=== PATIENT | female | born 1990 | race Caucasian/White ===

== ENCOUNTER 2017-05-12 04:30 | Inpatient (IN) | payer OTHER ==
[~2017-05-12] VITALS: Ht 157.5 cm; Wt 49.2 kg
[2017-05-12] MEDS ORDERED: SOD CHLORIDE 0.9% 1,000 ML IV STA (05:31)
[2017-05-12] MEDS ORDERED: morphine 4 MG/ML VIAL IV STA (05:31)
[2017-05-12] MEDS ORDERED: ONDANSETRON 4 MG INJ IV STA (05:31)
[2017-05-12] MEDS ORDERED: ALPR2TAB PO (05:49)
[2017-05-12] MEDS ORDERED: BIOT1CAP3 PO (05:49)
[2017-05-12] MEDS ORDERED: MELA1TAB15 PO (05:49)
[2017-05-12] MEDS ORDERED: QUET300T13 PO (05:49)
[2017-05-12] MEDS ORDERED: AMPH20TA2 PO (05:49)
[2017-05-12] MEDS ORDERED: LITH300T5 PO (05:49)
[2017-05-12 06:09] LABS: BASOPHIL # 0.1 10^3/ul (0.0-0.1); BASOPHILS % 0.5 % (0.0-2.0); EOSINOPHILS # 0.3 10^3/ul (0.0-0.5); EOSINOPHILS % 1.6 % (0.0-7.0); HEMATOCRIT 40.3 % (37.0-47.0); HEMOGLOBIN 13.6 g/dl (12.0-16.0); LYMPHOCYTES # 2.7 10^3/ul (0.8-2.9); LYMPHOCYTES % 16.2 % (15.0-51.0); MEAN CORPUSCULAR HEMOGLOBIN 33.1 pg (29.0-33.0); MEAN CORPUSCULAR HGB CONC 33.7 g/dl (32.0-37.0); MEAN CORPUSCULAR VOLUME 98.1 fl (82.0-101.0); MONOCYTE # 0.9 10^3/ul (0.3-0.9); MONOCYTES % 5.2 % (0.0-11.0); NEUTROPHIL # 12.7 10^3/ul (1.6-7.5); NEUTROPHILS % 76.1 % (39.0-77.0); PLATELET COUNT 364 10^3/UL (140-415); RED BLOOD COUNT 4.11 10^6/ul (4.20-5.40); WHITE BLOOD COUNT 16.7 10^3/ul (4.8-10.8)
--- NOTE | 2017-05-12 06:29 | RADRPT ---
PROCEDURE: CT Abdomen and pelvis without contrast. CLINICAL INDICATION: Abdominal pain TECHNIQUE: CT scan of the abdomen and pelvis without contrast was performed on a multidetector hig h-resolution CT scan. . Coronal and sagittal reformatted images were obtained from the axial [facility] e images. Standard CT scan of the abdomen pelvis without contrast protocols were performed. The total exam CTDI equals 4.41 mGy and the total exam DLP equals 224.31 mGy-cm. One or more of the following dose reduction techniques were used: - Automated exposure control. - Adjustment of the mA and/or kV according to patient size. Use of iterative reconstruction technique. COMPARISON: None. FINDINGS: The kidneys are normal in size without hydronephrosis or intra renal masses bilaterally. There is a punctate 1-2 mm non-obstructing inferior left renal calcified calculus. No other calcified renal c alculi. The urinary bladder is contracted but otherwise unremarkable. No evidence of ureteral calc jerrell. The uterus is anteverted anteflexed with an intrauterine device present. The uterus is otherwise un remarkable. No definite adnexal masses. There is trace fluid in the cul-de-sac. No other abdomina l free fluid. Negative for intra-abdominal free air or abscesses. There are prominent left periaor tic lymph nodes but no definite abdominal or pelvic lymphadenopathy. The liver spleen pancreas and adrenal glands are unremarkable. The appendix is unremarkable. The stomach, small bowel and large bowel are unremarkable. The aorta and lung bases are unremarkable. The lower thoracic abdominal pelvic viramontes are unremarkab le. There are degenerative changes lower thoracic and lumbar spine. There is a minimal grade 1 retrolit hesis of L5 on S1 vertebral bodies. No other subluxations. No acute osseous findings are osteoblas tic/osteolytic lesions. IMPRESSION: 1. Punctate 1-2 mm non-obstructing left renal calcified calculus. No other calcified urinary calcu li or obstructive uropathy. 2. Trace fluid in the cul-de-sac without intra-abdominal free air or abscess. 3. Unremarkable appendix. No evidence of gastrointestinal disease. RPTAT:AAJJ Physician Mariola Date Time Electronically viewed and signed by Physician Mariola on 05/12/2017 06:29 HATTIE/
[2017-05-12 06:38] LABS: ALBUMIN 4.1 g/dl (3.3-4.9); ALBUMIN/GLOBULIN RATIO 1.28; BILIRUBIN,INDIRECT 0.3 mg/dl (0-1.1); BILIRUBIN,TOTAL 0.3 mg/dl (0.2-1.3); CALCIUM 9.2 mg/dl (8.4-10.2); CREATININE 0.81 mg/dl (0.44-1.00); POTASSIUM 3.7 mmol/L (3.5-5.1); TOTAL PROTEIN 7.3 g/dl (6.1-8.1)
[2017-05-12 06:45] LABS: ADD UMIC YES; UR ASCORBIC ACID NEGATIVE (NEGATIVE); UR BACTERIA FEW /HPF (NONE SEEN); UR BILIRUBIN (Dip) NEGATIVE (NEGATIVE); UR BLOOD (Dip) NEGATIVE (NEGATIVE); UR BUDDING YEAST FEW /HPF (NONE SEEN); UR CLARITY SLIGHTLY CLOUDY (CLEAR); UR COLOR YELLOW (YELLOW); UR GLUCOSE (Dip) NEGATIVE (NEGATIVE); UR KETONES (Dip) NEGATIVE (NEGATIVE); UR LEUKOCYTE ESTERASE (Dip) 2+ Leu/ul (NEGATIVE); UR MUCUS FEW /HPF (NONE SEEN); UR NITRITE (Dip) NEGATIVE (NEGATIVE); UR RBC 9 /HPF (0-5); UR SPECIFIC GRAVITY (Dip) 1.021 (1.003-1.030); UR SQUAMOUS EPITHELIAL CELL FEW /HPF (FEW); UR TOTAL PROTEIN (Dip) NEGATIVE (NEGATIVE); UR UROBILINOGEN (Dip) 1+ mg/dL (NEGATIVE)
[2017-05-12] MEDS ORDERED: metroNIDAZOLE 500 MG/NS (PMX) 100 ML IVPB ONE (07:00)
[2017-05-12] MEDS ORDERED: CEFTRIAXONE 1 GM/50 ML (PMX) 50 ML IVPB ONE (07:00)
[2017-05-12] MEDS ORDERED: morphine 2 MG INJ IV ONE (07:30)
--- NOTE | 2017-05-12 07:43 | RADRPT ---
PROCEDURE: US pelvis complete and transvaginal CLINICAL INDICATION: 3 weeks of pelvic pain with clinical symptoms more suspicious for pelvic infl ammatory disease than ovarian torsion. TECHNIQUE: Deshpande scale and color Doppler imaging of the pelvis was performed. Endovaginal scanning was performed for more detailed evaluation of the endometrium. The images were reviewed on a PACS workstation. COMPARISON: CT from 05/12/2017 FINDINGS: The uterus measures 7 x 3.1 x 4.1 centimeters. The right ovary measures 5.6 x 4.2 x 5.1 centimeters and the left ovary measures 4.3 x 3.1 x 4.1 centimeters. The endometrial stripe measures 4 millime ters in thickness and an IUD is seen in place.. Trace fluid is seen within the endometrial canal. N o fibroids are seen. There are multiple ovarian follicles bilaterally which could be due to polycyst ic ovaries. Arterial and venous pulsed wave Doppler and color Doppler flow both ovaries was documen camelia. There is a dominant hypoechoic lesion with slightly heterogeneous content in the right ovary m easuring approximately 3.3 x 2.1 cm. Within the left ovary, the largest lesion is in a heterogeneou s complex lesion measuring 2.7 x 2.9 cm with mixed hypoechoic and hyperechoic areas. Free fluid is n ot seen although there was some free fluid present in the cul-de-sac on earlier CT. IMPRESSION: IUD. Enlarged ovaries with multiple follicles and dominant heterogeneous lesion in each ovary which could be due to complex cyst or possibly endometriomas. There is not a clearly dilated fallopian t ube on either side to specifically suggest tubo-ovarian abscess although that cannot be completely e xcluded. Ovarian torsion cannot be excluded although flow was readily obtained in the region of eac h ovary. Results were called to Misael Meraz at 05/12/2017 7:41:18 AM RPTAT: HLBE Isabel Mendez Physician Date Time Electronically viewed and signed by Isabel Mendez Physician on 05/12/2017 07:42 LE/
[2017-05-12 08:00] LABS: INR 0.98
[2017-05-12 08:01] LABS: PARTIAL THROMBOPLASTIN TIME 34.9 Sec (25.0-35.0)
--- NOTE | 2017-05-12 08:04 | ERA ---
ER Documentation Chief Complaint Date/Time DATE: 05/12/17 TIME:522 Chief Complaint abdomianl pain x 2 1/2 weeks HPI 26-year-old female presents to the emergency department complaining of lower abdominal pain. Patient states that she has had a diffuse, nonspecific, visceral lower abdominal pain for approximately 2-3 weeks. It became worse over the last 24 hours and now is mostly right lower quadrant pain. She denies fevers, chills, anorexia or vomiting. She currently reports the pain is moderate to severe. She states she has had a concurrent vaginal discharge. She denies vaginal bleeding. She denies dysuria, flank pain. She denies hematuria. ROS All systems reviewed and are negative except as per history of present illness. Medications Home Meds Reported Medications Melatonin (Melatonin) Unknown Strength Tablet, PO HS, TAB 05/12/17 Biotin (BIOTIN) 1 Mg Capsule, PO, CAP 05/12/17 Amphet Qtm-Mmlkgd-E-Amphet (Adderall) 20 Mg Tablet, 20 MG PO DAILY, TAB 05/12/17 Alprazolam* (Xanax*) 2 Mg Tablet, 2 MG PO DAILY Y for ANXIETY, TAB 05/12/17 Quetiapine Fumarate* (Seroquel*) 300 Mg Tablet, 300 MG PO HS, TAB 05/12/17 [place] Carbonate* ([place] Carbonate*) 300 Mg Tablet, 300 MG PO BID, TAB 05/12/17 Allergies Allergies: Coded Allergies: No Known Drug Allergies (Verified Allergy, Unknown, 05/12/17) PMhx/Soc Medical and Surgical Hx: pt denies Surgical Hx Hx Psychiatric Problems: Yes (anxiety, bipolar disorder) Hx Alcohol Use: Yes (occasional) Hx Substance Use: Yes (marijuana) Hx Tobacco Use: Yes Smoking Status: Current some day smoker FmHx Noncontributory for chief complaint Physical Exam Vitals Vital Signs Date Time Temp Pulse Resp B/P Pulse Ox O2 Delivery O2 Flow Rate FiO2 05/12/17 07:44 73 18 110/68 99 Room Air 05/12/17 04:36 97.0 105 20 110/57 99 Physical Exam GENERAL: The patient is well developed and appropriate for usual state of health in no apparent distress HEENT: Pupils equal, round, and reactive to light. EOMI. There is no scleral icterus. NECK: C-spine is soft and supple, there is no meningismus. There is no cervical lymphadenopathy. LUNGS: Clear to auscultation bilaterally. There are no rales, wheezes or rhonchi. HEART: Regular rate and rhythm, no murmurs, clicks, rubs or gallops. ABDOMEN: Soft, nondistended. Normal active bowel sounds. Minimal tenderness in the suprapubic and right lower quadrant area. No rebound, guarding, peritoneal signs. No CVA tenderness. EXTREMITIES: There is no peripheral cyanosis or edema. No focal swelling or erythema. NEURO: The patient moves all four extremities with 5/5 strength. Cranial nerves II - XII are intact. Normal gait. Alert and oriented SKIN: There is no apparent rash or petechiae. HEME/LYMPHATIC: There is no evidence of excessive bruising or lymphedema. PSYCHIATRIC: The patient does not appear anxious or depressed. Result Diagram: 05/12/17 0557 05/12/17 0557 Results 24 hrs Laboratory Tests Test 05/12/17 05:31 05/12/17 05:57 Urine Color YELLOW Urine Clarity SLIGHTLY CLOUDY Urine pH 6.0 Urine Specific [place] 1.021 Urine Ketones NEGATIVEmg/dL Urine Nitrite NEGATIVEmg/dL Urine Bilirubin NEGATIVEmg/dL Urine Urobilinogen 1+mg/dL Urine Leukocyte Esterase 2+[place]/ul Urine Microscopic RBC 9/HPF Urine Microscopic WBC 75/HPF Urine Squamous Epithelial Cells FEW/HPF Urine Bacteria FEW/HPF Urine Mucus FEW/HPF Urine Yeast (Budding) FEW/HPF Urine Hemoglobin NEGATIVEmg/dL Urine Glucose NEGATIVEmg/dL Urine Total Protein NEGATIVEmg/dl Urine Test NEGATIVE White Blood Count 16.710^3/ul Red Blood Count 4.1110^6/ul Hemoglobin 13.6g/dl Hematocrit 40.3% Mean Corpuscular Volume 98.1fl Mean Corpuscular Hemoglobin 33.1pg Mean Corpuscular Hemoglobin Concent 33.7g/dl Red Cell Distribution Width 12.0% Platelet Count 64115^3/UL Mean Platelet Volume 10.0fl Neutrophils % 76.1% Lymphocytes % 16.2% Monocytes % 5.2% Eosinophils % 1.6% Basophils % 0.5% Nucleated Red Blood Cells % 0.0/100WBC Neutrophils # 12.710^3/ul Lymphocytes # 2.710^3/ul Monocytes # 0.910^3/ul Eosinophils # 0.310^3/ul Basophils # 0.110^3/ul Nucleated Red Blood Cells # 0.010^3/ul Sodium Level 144mmol/L Potassium Level 3.7mmol/L Chloride Level 100mmol/L Carbon Dioxide Level 29mmol/L Anion Gap 19 Blood Urea Nitrogen 9mg/dl Creatinine 0.81mg/dl Glucose Level 81mg/dl Calcium Level 9.2mg/dl Total Bilirubin 0.3mg/dl Direct Bilirubin 0.00mg/dl Indirect Bilirubin 0.3mg/dl Aspartate Amino Transf (AST/SGOT) 21IU/L Alanine Aminotransferase (ALT/SGPT) 38IU/L Alkaline Phosphatase 92IU/L Total Protein 7.3g/dl Albumin 4.1g/dl Globulin 3.20g/dl Albumin/Globulin Ratio 1.28 Lipase 381U/L Current Medications Medications (Trade) Dose Ordered Sig/Sherry Route PRN Reason Start Time Stop Time Status Last Admin Dose Admin Sodium Chloride (NS) 1,000 ml @ 1,000 mls/hr Q1H STAT IV 05/12/17 05:31 05/12/17 06:30 DC 05/12/17 06:04 Ondansetron HCl (Zofran Inj) 4 mg ONCE STAT IV 05/12/17 05:31 05/12/17 05:33 DC 05/12/17 06:03 Morphine Sulfate 4 mg 4 mg ONCE STAT IV 05/12/17 05:31 05/12/17 05:33 DC 05/12/17 06:04 Ceftriaxone Sodium 50 ml @ 100 mls/hr ONCE ONCE IVPB 05/12/17 07:00 05/12/17 07:29 DC 05/12/17 07:01 Metronidazole (Flagyl 500 Mg (Pmx)) 100 ml @ 100 mls/hr ONCE ONCE IVPB 05/12/17 07:00 05/12/17 07:59 DC 05/12/17 07:51 Morphine Sulfate (morphine) 2 mg ONCE ONCE IV 05/12/17 07:30 05/12/17 07:31 DC 05/12/17 07:37 Procedures/MDM Patient was taken to a room, seen and evaluated. Comfort measures were initiated. Diagnostic tests were ordered and reviewed. RADIOLOGY: reviewed with the radiologist CONSULTATION: hospitalist was notified for admission. FRUIT CUTTER consultation was obtained REEVALUATION: Patient required ongoing pain medication but did not develop peritoneal signs MEDICAL DECISION MAKIN-year-old female presents with abdominal pain of uncertain etiology. Differential diagnosis considered includes appendicitis, diverticulitis, cholecystitis and other intra-abdominal medical, gynecologic and surgical concerns. I have reviewed the patient's lab studies and imaging as well as multiple examinations of the abdomen. At this time, given patient's abnormal ultrasound, white blood cell count, pelvic discomfort and discharge, my main concern is that this is PID related. CAT scan does not demonstrate appendicitis, and her clinical examination is not consistent with torsion. She was noted to have blood flow on her ultrasound to both ovaries. The CAT scan does demonstrate free fluid, which I believe is likely related to what I suspect is a TOA/PID presentation. Concurrently, patient has an elevated lipase and tells me she has been drinking a significant amount of alcohol. However, her right upper quadrant is not tender. I have ordered an ultrasound of the gallbladder to further evaluate the gallbladder, although I suspect that her pancreatitis is likely related to alcohol. At this time, given the patient's ongoing discomfort, patient will be admitted to the hospital for further observation, pain control, gynecologic consultation and further treatment. Have started her on broad-spectrum antibiotics for PID. Departure Diagnosis: Primary Impression: Pelvic inflammatory disease Additional Impression: Pancreatitis Condition: WAYNE French May 12, 2017 08:04
--- NOTE | 2017-05-12 08:29 | RADRPT ---
PROCEDURE: US Abdomen (right upper quadrant). CLINICAL INDICATION: Right upper quadrant abdomen pain. TECHNIQUE: Multiple real-time longitudinal and transverse images of the right upper quadrant of th e abdomen were acquired utilizing a curved array transducer. Images were reviewed on a high-resoluti on PACS workstation. COMPARISON: CT scan of the abdomen and pelvis done earlier the same day. FINDINGS: The liver is normal in size and normal in echogenicity. There is no focal hepatic lesion. Color Doppler sonography demonstrate normal antegrade flow in the portal vein. The gallbladder is normal with no stones or wall thickening. There is no pericholecystic fluid jakob ection. The bile ducts are normal with the common bile duct measuring 5.4 mm in diameter. The visualized portions of the pancreas are unremarkable with obscuration of the tail of the pancrea s. No free fluid is present. The right kidney measures 10.8 cm. There is normal echogenicity of the right kidney. There is no perinephric fluid collection. No hydronephrosis, mass, or calculus is seen. IMPRESSION: 1. Unremarkable right upper quadrant abdomen ultrasound. RPTAT: QQ .Abdifatah Finch MD, Date Time Electronically viewed and signed by .Abdifatah Finch MD, on 05/12/2017 08:28 .R/
[2017-05-12 09:14] VITALS: PULSE 73
[2017-05-12] MEDS ORDERED: ONDANSETRON 4 MG INJ IV PRN (09:30)
[2017-05-12] MEDS ORDERED: NACL 0.9% 3 ML SYG IV SCH (09:30)
[2017-05-12] MEDS ORDERED: ACETAMINOPHEN 650 MG SUPP PR PRN (09:30)
[2017-05-12 09:36] VITALS: BP 105/60; RESP 16
[2017-05-12] MEDS: morphine 2 MG INJ IV PRN ×3 (09:43→19:39)
[2017-05-12] MEDS: SOD CHLORIDE 0.9% 1,000 ML IV SCH ×2 (10:24→17:02)
[2017-05-12] MEDS: LORAZEPAM 2 MG INJ IV PRN ×4 (10:50→21:12)
[2017-05-12 12:04] LABS: HAAIG REFLEX REFLEX FILED
[2017-05-12 12:22] LABS: HEPATITIS B CORE ANTIBODY NEGATIVE (NEGATIVE)
--- NOTE | 2017-05-12 13:13 | HP ---
Date/Time of Note Date/Time of Note DATE: 05/12/17 TIME: 12:59 Assessment/Plan VTE Prophylaxis VTE Prophylaxis Intervention: ambulation, SCD's Lines/Catheters IV Catheter Type (from Nrs): Peripheral IV Urinary Cath still in place: No Assessment/Plan Chief Complaint/Hosp Course 1. Abdominal pain, multifactorial secondary to possible pelvic inflammatory disease /Ovarian cyst/Infected IUD versus other non CHILD CARE ATTENDANT causes most likely urinary tract infection and mild pancreatitis 05/12/17.Pelvic ultrasound: Enlarged ovaries with multiple follicles and dominant heterogeneous lesion in each ovary which could be due to complex cyst or possibly endometriomas. 05/12/17. CT abdomen and pelvis: Trace fluid in the cul-de-sac without intra-abdominal free air or abscess. 05/12/17. Urinalysis positive for bacteria, WBC, yeast and leukocyte esterase. 05/12/17. Lipase 381 -Admit as inpatient. -Strict n.p.o. until pain gets better, IV fluid hydration, broad-spectrum antibiotics, adequate analgesia, H2 B, antiemetics PRN. -CHILD CARE ATTENDANT consult with DR.Forohoor murphy. -Obtain cultures of vaginal discharge. 2. Urinary tract infection. Urinalysis strongly suggest UTI. -We will keep patient on broad-spectrum antibiotics and obtain cultures. 3. Possible pancreatitis. Lipase 381. -N.p.o., IV fluids, pain medications. -Trend lipase daily. 4. SIRS with leukocytosis likely secondary to UTI and possible PID -Again, patient will be continued on broad-spectrum antibiotics and we will obtain pancultures. 5. Anxiety/bipolar disorder. -Resume home medication once able to tolerate p.o. -Ativan PRN 6. Alcohol abuse. Currently no signs of DTs. -Daily banana bag and prn Ativan -Consider Librium if indicated -Cessation advised and social secretary consult for providing him with resources 7. Marijuana abuse -Patient was counseled and we will also consult social secretary. DVT prophylaxis: Ambulation/SCDs PUD prophylaxis: Pepcid Plan: Patient will be admitted to medical surgical floor. She will be monitored for possible DTs. Patient will be kept n.p.o. until abdominal pain gets improved. She will be given adequate analgesia, IV fluid hydration, antiemetics and broad-spectrum antibiotics. Along with blood and urine cultures. Spoke with CLIENT ENGAGEMENT SPECIALIST outreach liaison and patient will be followed up with CHILD CARE ATTENDANT for further recommendation. Meanwhile, we will also obtain a complete panel including regular blood work, lithium level, HIV panel, hep panel and GC/ chlamydia cultures. Rest of the management depend on clinical course, further studies and input from big machine consultant. Approximately 60 minutes was spent on this history and physical. Case discussed with . Problems: HPI/ROS Admit Date/Time Admit Date/Time May 12, 2017 at 08:36 Hx of Present Illness This is a 26-year-old female with a past medical history of bipolar disorders, PTSD, on lithium, suicidal attempts, current alcohol and marijuana abuse, cholecystectomy, tubal ligation, IUD placed,polygamy, previous inpatient hospitalization at psychiatric facility with 5150, who presented to the emergency room with complaints of 2-3 weeks duration of worsening abdominal pain mostly located at the periumbilical area. He also reported foul-smelling, clear vaginal discharges. Patient is also sexually active with multiple sexual partners. Patient denied nausea, vomiting, fever or chills. Patient denied any hematochezia, hematemesis or melena. She denied any dysuria, hematuria, urinary frequency, flank pain, chest pain, shortness of breath, loss of consciousness, dizziness, headache, numbness or other constitutional symptoms. In the emergency room,Temperature 97, pulse rate 105, respiratory rate 20, blood pressure 110/57 and oxygen saturation 99% upon arrival. Initial labs showed elevated WBC 16,700 and a mildly elevated lipase of 381. Urine analysis was positive for leukocyte esterase, WBC, bacteria and yeast. Patient was given 1 L normal saline, morphine sulfate 4 mg, Zofran 4 mg, ceftriaxone and Flagyl in the emergency room and a clinical decision was made to admit for further evaluation. A CT abdomen was negative for any acute intra-abdominal inflammation. There was a punctuate 1-2 mm nonobstructing left renal calculi in the imaging. Ultrasound gallbladder was negative. Pelvic ultrasound with dominant heterogeneous lesion in each ovary which could be due to complex cyst or possibly endometriomas. Patient was admitted for further evaluation. ROS A 12 point review of system was assessed and is negative other than what is mentioned in HPI. PMH/Family/Social Past Medical History See HPI Past Surgical History See HPI Social History Current every day alcohol, marijuana abuse. Former nicotine abuse. Smoking Status: Current some day smoker Exam/Review of Systems Vital Signs Vitals Vital Signs Date Time Temp Pulse Resp B/P Pulse Ox O2 Delivery O2 Flow Rate FiO2 05/12/17 09:36 98.8 74 16 105/60 98 05/12/17 09:14 Room Air Exam Exam General: Anxious looking young female , not in any acute distress . HEENT: Normocephalic, Atraumatic, No laceration or hematoma; Eyes: PEERL, Conjunctiva clear, Anicteric sclera Neck: Supple without any lymphadenopathy, nontender, no JVD, no carotid bruits, trachea midline, no thyromegaly Cardiac: S1, S2 auscultated, regular rhythm and rate, no mumurs or gallop Pulmonary: Normal respiratory effort. Chest clear to auscultation bilaterally, no adventitious breath sounds GI: Tenderness to periumbilical area. There is also a small burn area on the right lower quadrant. Otherwise abdomen normal to inspection. Soft, non- distended, no masses, no rebound tenderness or guarding. Bowel sounds active on all four quadrants Genitourinary: With foul-smelling clear vaginal discharge Extremities: No cyanosis, clubbing, or edema. Pulses [2+] bilaterally. Full ROM on all four extremities. No focal weakness appreciated. Neurologic: Alert to person, place, time, and situation. Affect appropriate, intact sensation. Skin: With multiple tattoos all over the body. Otherwise skin clean,dry, and intact. No ecchymosis, no rashes, or lesions Labs Result Diagram: 05/12/17 0557 05/12/17 0557 Medications Medications Current Medications Sodium Chloride (NS) 1,000 ml @ 125 mls/hr Q8H IV Last administered on 10:24; Admin Dose 125 MLS/HR; Start 05/12/17 at 09:02 Ondansetron HCl (Zofran Inj) 4 mg Q6H PRN IV NAUSEA AND/OR VOMITING; Start at 09:30 Acetaminophen (Tylenol Supp) 650 mg Q6H PRN [place] PAIN LEVEL 1-3 OR FEVER; Start 05/12/17 at 09:30 Morphine Sulfate (morphine) 2 mg Q4H PRN IV SEVERE PAIN LEVEL 7-10 Last administered on 05/12/17 09:43; Admin Dose 2 MG; Start 05/12/17 at 09:30 Famotidine 20 mg 20 mg Q12 IV ; Start 05/12/17 at 21:00 Ciprofloxacin/ Dextrose 200 ml @ 200 mls/hr Q12 IVPB ; Start 05/12/17 at 21:00 Metronidazole (Flagyl 500 Mg (Pmx)) 100 ml @ 100 mls/hr Q8 IVPB ; Start at 14:00 Lorazepam 1 mg 1 mg Q2H PRN IV anxiety Last administered on 05/12/17t 10:50; Admin Dose 1 MG; Start 05/12/17 at 09:30 Multivitamins/ Thiamine HCl/ Folic Acid/Sodium Chloride (Mvi Adult/ Vitamin B1/ Folic Acid/NS) 1,011.2 ml @ 125 mls/ hr DAILY@09 IVPB ; Start 05/12/17 at 11:00 JULIA GUZMAN NP May 12, 2017 13:10
[2017-05-12] MEDS: metroNIDAZOLE 500 MG/NS (PMX) 100 ML IVPB SCH ×2 (14:44→22:11)
[2017-05-12 15:27] VITALS: Ht 157.5 cm; Wt 49.2 kg
[2017-05-12] MEDS: MULTIVITAMINS 10 ML, THIAMINE 100 MG, FOLIC ACID 1 MG in SOD CHLORIDE 0.9% 1,000 ML IVPB SCH (15:55)
[2017-05-12] MEDS: SILVER SULFADIAZINE 1% 25 GM CR TOP SCH (18:12)
[2017-05-12 20:00] VITALS: BP 105/65; RESP 16
--- NOTE | 2017-05-12 20:18 | CONS ---
Date/Time of Note Date/Time of Note DATE: 05/12/17 TIME: 19:00 Consultation Date/Type/Reason Admit Date/Time May 12, 2017 Hospital consult Reason for Consultation Laboratory Tests Test 05/12/17 05:31 05/12/17 05:57 05/12/17 10:21 05/12/17 10:22 Urine Color YELLOW Urine Clarity SLIGHTLY CLOUDY Urine pH 6.0 Urine Specific [place] 1.021 Urine Ketones NEGATIVEmg/dL Urine Nitrite NEGATIVEmg/dL Urine Bilirubin NEGATIVEmg/dL Urine Urobilinogen 1+mg/dL Urine Leukocyte Esterase 2+[place]/ul Urine Microscopic RBC 9/HPF Urine Microscopic WBC 75/HPF Urine Squamous Epithelial Cells FEW/HPF Urine Bacteria FEW/HPF Urine Mucus FEW/HPF Urine Yeast (Budding) FEW/HPF Urine Hemoglobin NEGATIVEmg/dL Urine Glucose NEGATIVEmg/dL Urine Total Protein NEGATIVEmg/dl Urine Test NEGATIVE White Blood Count 16.710^3/ul Red Blood Count 4.1110^6/ul Hemoglobin 13.6g/dl Hematocrit 40.3% Mean Corpuscular Volume 98.1fl Mean Corpuscular Hemoglobin 33.1pg Mean Corpuscular Hemoglobin Concent 33.7g/dl Red Cell Distribution Width 12.0% Platelet Count 13568^3/UL Mean Platelet Volume 10.0fl Neutrophils % 76.1% Lymphocytes % 16.2% Monocytes % 5.2% Eosinophils % 1.6% Basophils % 0.5% Nucleated Red Blood Cells % 0.0/100WBC Neutrophils # 12.710^3/ul Lymphocytes # 2.710^3/ul Monocytes # 0.910^3/ul Eosinophils # 0.310^3/ul Basophils # 0.110^3/ul Nucleated Red Blood Cells # 0.010^3/ul Prothrombin Time 13.0Sec Prothrombin Time Ratio 1.0 INR International Normalized Ratio 0.98 Activated Partial Thromboplast Time 34.9Sec Sodium Level 144mmol/L Potassium Level 3.7mmol/L Chloride Level 100mmol/L Carbon Dioxide Level 29mmol/L Anion Gap 19 Blood Urea Nitrogen 9mg/dl Creatinine 0.81mg/dl Glucose Level 81mg/dl Calcium Level 9.2mg/dl Total Bilirubin 0.3mg/dl Direct Bilirubin 0.00mg/dl Indirect Bilirubin 0.3mg/dl Aspartate Amino Transf (AST/SGOT) 21IU/L Alanine Aminotransferase (ALT/SGPT) 38IU/L Alkaline Phosphatase 92IU/L Total Protein 7.3g/dl Albumin 4.1g/dl Globulin 3.20g/dl Albumin/Globulin Ratio 1.28 Lipase 381U/L [place] Level < 0.6mmol/L Hepatitis B Surface Antigen NEGATIVE Hepatitis B Core Total Antibody NEGATIVE Hepatitis C Antibody NEGATIVE Test 05/12/17 14:17 HIV (1&2) Antibody NEGATIVE Current Medications Medications (Trade) Dose Ordered Sig/Sherry Route PRN Reason Start Time Stop Time Status Last Admin Dose Admin Sodium Chloride (NS) 1,000 ml @ 1,000 mls/hr Q1H STAT IV 05/12/17 05:31 05/12/17 06:30 DC 05/12/17 06:04 1,000 MLS/HR Ondansetron HCl (Zofran Inj) 4 mg ONCE STAT IV 05/12/17 05:31 05/12/17 05:33 DC 05/12/17 06:03 4 MG Morphine Sulfate 4 mg 4 mg ONCE STAT IV 05/12/17 05:31 05/12/17 05:33 DC 05/12/17 06:04 4 MG Ceftriaxone Sodium 50 ml @ 100 mls/hr ONCE ONCE IVPB 05/12/17 07:00 05/12/17 07:29 DC 05/12/17 07:01 100 MLS/HR Metronidazole (Flagyl 500 Mg (Pmx)) 100 ml @ 100 mls/hr ONCE ONCE IVPB 05/12/17 07:00 05/12/17 07:59 DC 05/12/17 07:51 100 MLS/HR Morphine Sulfate 2 mg 2 mg ONCE ONCE IV 05/12/17 07:30 05/12/17 07:31 DC 05/12/17 07:37 2 MG Sodium Chloride (NS) 1,000 ml @ 125 mls/hr Q8H IV 05/12/17 09:02 05/12/17 10:24 125 MLS/HR IV Flush (NS 3 ml) 3 ml PER PROTOCOL IV 05/12/17 09:30 Ondansetron HCl (Zofran Inj) 4 mg Q6H PRN IV NAUSEA AND/OR VOMITING 05/12/17 09:30 Acetaminophen (Tylenol Supp) [address] PAIN LEVEL 1-3 OR FEVER 05/12/17 09:30 Morphine Sulfate (morphine) 2 mg Q4H PRN IV SEVERE PAIN LEVEL 7-10 05/12/17 09:30 05/12/17 14:26 2 MG Famotidine 20 mg 20 mg Q12 IV 05/12/17 21:00 Ciprofloxacin/ Dextrose 200 ml @ 200 mls/hr Q12 IVPB 05/12/17 21:00 Metronidazole (Flagyl 500 Mg (Pmx)) 100 ml @ 100 mls/hr Q8 IVPB 05/12/17 14:00 05/12/17 14:44 100 MLS/HR Lorazepam 1 mg 1 mg Q2H PRN IV anxiety 05/12/17 09:30 05/12/17 18:12 1 MG Multivitamins/ Thiamine HCl/ Folic Acid/Sodium Chloride (Mvi Adult/ Vitamin B1/Folic Acid/NS) 1,011.2 ml @ 125 mls/ hr DAILY@09 IVPB 05/12/17 11:00 05/12/17 15:55 125 MLS/HR Silver Sulfadiazine (Thermazene 1% 25 Gm) 1 applic DAILY TOP 05/12/17 17:00 05/12/17 18:12 1 APPLIC This patient is a 26 years old 3 para 1 2 who was admitted to the emergency room complaining of lower abdominal pain Ultrasound study reported possibility of ovarian cyst, pelvic inflammatory disease, ovarian cyst. Placed on antibiotics On a pelvic examination that I have done today she does have a foul vaginal discharge and an IUD in place , moderate pelvic and uterine tenderness. Abdomen was soft no CVA tenderness. On the speculum examination of the vagina there was a white fel[place] color foul- smelling discharge IUD was removed and the culture was taken and sent for culture and sensitivity test. Her conditions and the need for continuation of antibiotic was discussed with her Constitutional: No chills, No diaphoresis, No disoriented, No febrile, No improved, No no complaints, No other, No poor po, No requiring IVF, No requiring O2 Eyes: No discharge, No no complaints, No other, No pain, No redness, No visual change ENT: No bleeding, No congestion, No discharge, No dysphagia, No no complaints, No other, No pain, No sore throat Respiratory: other (Chest clear no rales), No cough, No no complaints, No pain, No pleuritic pain, No shortness of breath, No sputum, No wheezing Cardiovascular: other (Normal sinus rhythm no murmur) Gastrointestinal: other (Bowel sounds are audible. Abdomen is soft there are slight lower abdominal tenderness no CVA tenderness), No blood, No constipation, No decreased appetite, No diarrhea, No flatus, No nausea, No no complaints, No pain, No passing stool, No vomiting Genitourinary: other (On pelvic examination as I mentioned there was some degree of tenderness and the cervical tenderness no large mass could be identified), No bleeding, No discharge, No dysuria, No flank pain, No hematuria, No no complaints Musculoskeletal: No back pain, No bone/joint pain, No neck pain, No no complaints, No other, No restricted range of motion, No swelling Skin: No bruising, No erythema, No laceration, No no complaints, No other, No pruritis, No rash, No skin lesions Neurologic: No confusion, No dizziness, No focal-weakness, No headache, No no complaints, No other, No seizure, No syncope Additional Comments After the IUD was removed and the specimen sent for culture and sensitivity The antibiotic should be adjusted according to the report of the sensitivity Social History Smoking Status: Current every day smoker Exam/Review of Systems Vital Signs Vitals Vital Signs Date Time Temp Pulse Resp B/P Pulse Ox O2 Delivery O2 Flow Rate FiO2 05/12/17 09:36 98.8 74 16 105/60 98 05/12/17 09:14 Room Air Results Result Diagram: 05/12/17 0557 05/12/17 0557 Results 24 hrs Laboratory Tests Test 05/12/17 05:31 05/12/17 05:57 05/12/17 10:21 05/12/17 10:22 Urine Color YELLOW Urine Clarity SLIGHTLY CLOUDY A Urine pH 6.0 Urine Specific [place] 1.021 Urine Ketones NEGATIVE Urine Nitrite NEGATIVE Urine Bilirubin NEGATIVE Urine Urobilinogen 1+ H Urine Leukocyte Esterase 2+ H Urine Microscopic RBC 9 H Urine Microscopic WBC 75 H Urine Squamous Epithelial Cells FEW Urine Bacteria FEW A Urine Mucus FEW A Urine Yeast (Budding) FEW A Urine Hemoglobin NEGATIVE Urine Glucose NEGATIVE Urine Total Protein NEGATIVE Urine Test NEGATIVE White Blood Count 16.7 H Red Blood Count 4.11 L Hemoglobin 13.6 Hematocrit 40.3 Mean Corpuscular Volume 98.1 Mean Corpuscular Hemoglobin 33.1 H Mean Corpuscular Hemoglobin Concent 33.7 Red Cell Distribution Width 12.0 Platelet Count 364 Mean Platelet Volume 10.0 Neutrophils % 76.1 Lymphocytes % 16.2 Monocytes % 5.2 Eosinophils % 1.6 Basophils % 0.5 Nucleated Red Blood Cells % 0.0 Neutrophils # 12.7 H Lymphocytes # 2.7 Monocytes # 0.9 Eosinophils # 0.3 Basophils # 0.1 Nucleated Red Blood Cells # 0.0 Prothrombin Time 13.0 Prothrombin Time Ratio 1.0 INR International Normalized Ratio 0.98 Activated Partial Thromboplast Time 34.9 Sodium Level 144 Potassium Level 3.7 Chloride Level 100 Carbon Dioxide Level 29 Anion Gap 19 H Blood Urea Nitrogen 9 Creatinine 0.81 Glucose Level 81 Calcium Level 9.2 Total Bilirubin 0.3 Direct Bilirubin 0.00 Indirect Bilirubin 0.3 Aspartate Amino Transf (AST/SGOT) 21 Alanine Aminotransferase (ALT/SGPT) 38 Alkaline Phosphatase 92 Total Protein 7.3 Albumin 4.1 Globulin 3.20 Albumin/Globulin Ratio 1.28 Lipase 381 H [place] Level < 0.6 L Hepatitis B Surface Antigen NEGATIVE Hepatitis B Core Total Antibody NEGATIVE Hepatitis C Antibody NEGATIVE Test 05/12/17 14:17 HIV (1&2) Antibody NEGATIVE Medications Medications Current Medications Sodium Chloride (NS) 1,000 ml @ 125 mls/hr Q8H IV Last administered on 10:24; Admin Dose 125 MLS/HR; Start 05/12/17 at 09:02 Ondansetron HCl (Zofran Inj) 4 mg Q6H PRN IV NAUSEA AND/OR VOMITING; Start at 09:30 Acetaminophen (Tylenol Supp) [address] PAIN LEVEL 1-3 OR FEVER; Start 05/12/17 at 09:30 Morphine Sulfate (morphine) 2 mg Q4H PRN IV SEVERE PAIN LEVEL 7-10 Last administered on 05/12/17 14:26; Admin Dose 2 MG; Start 05/12/17 at 09:30 Famotidine 20 mg 20 mg Q12 IV ; Start 05/12/17 at 21:00 Ciprofloxacin/ Dextrose 200 ml @ 200 mls/hr Q12 IVPB ; Start 05/12/17 at 21:00 Metronidazole (Flagyl 500 Mg (Pmx)) 100 ml @ 100 mls/hr Q8 IVPB Last administered on 05/12/17 14:44; Admin Dose 100 MLS/HR; Start 05/12/17 at 14:00 Lorazepam 1 mg 1 mg Q2H PRN IV anxiety Last administered on 05/12/17 18:12; Admin Dose 1 MG; Start 05/12/17 at 09:30 Multivitamins/ Thiamine HCl/ Folic Acid/Sodium Chloride (Mvi Adult/ Vitamin B1/ Folic Acid/NS) 1,011.2 ml @ 125 mls/ hr DAILY@09 IVPB Last administered on 15:55; Admin Dose 125 MLS/HR; Start 05/12/17 at 11:00 Silver Sulfadiazine (Thermazene 1% 25 Gm) 1 applic DAILY TOP Last administered on 05/12/17 18:12; Admin Dose 1 APPLIC; Start 05/12/17 at 17:00 RAY HECK MD May 12, 2017 19:10
[2017-05-12] MEDS: CIPROFLOXACIN 400MG/D5W 200 ML IVPB SCH (21:03)
[2017-05-12] MEDS: FAMOTIDINE 20 MG INJ IV SCH (21:03)
[2017-05-13] MEDS: morphine 2 MG INJ IV PRN ×4 (00:18→18:38)
[2017-05-13] MEDS: SOD CHLORIDE 0.9% 1,000 ML IV SCH ×3 (01:02→17:02)
[2017-05-13] MEDS: LORAZEPAM 2 MG INJ IV PRN ×2 (01:17→06:40)
[2017-05-13 02:37] VITALS: BP 117/69; RESP 16
[2017-05-13] MEDS: metroNIDAZOLE 500 MG/NS (PMX) 100 ML IVPB SCH ×3 (05:46→22:00)
[2017-05-13 06:14] LABS: BASOPHIL # 0.1 10^3/ul (0.0-0.1); BASOPHILS % 0.7 % (0.0-2.0); EOSINOPHILS # 0.2 10^3/ul (0.0-0.5); EOSINOPHILS % 1.1 % (0.0-7.0); HEMATOCRIT 35.8 % (37.0-47.0); HEMOGLOBIN 11.9 g/dl (12.0-16.0); LYMPHOCYTES # 2.3 10^3/ul (0.8-2.9); LYMPHOCYTES % 17.6 % (15.0-51.0); MEAN CORPUSCULAR HEMOGLOBIN 33.3 pg (29.0-33.0); MEAN CORPUSCULAR HGB CONC 33.2 g/dl (32.0-37.0); MEAN CORPUSCULAR VOLUME 100.3 fl (82.0-101.0); MEAN PLATELET VOLUME 10.3 fl (7.4-10.4); MONOCYTE # 0.8 10^3/ul (0.3-0.9); MONOCYTES % 6.1 % (0.0-11.0); NEUTROPHIL # 9.7 10^3/ul (1.6-7.5); NEUTROPHILS % 73.8 % (39.0-77.0); PLATELET COUNT 309 10^3/UL (140-415); RED BLOOD COUNT 3.57 10^6/ul (4.20-5.40); RED CELL DISTRIBUTION WIDTH 11.9 % (11.5-14.5); WHITE BLOOD COUNT 13.1 10^3/ul (4.8-10.8)
[2017-05-13 06:49] LABS: ALBUMIN 3.5 g/dl (3.3-4.9); ALBUMIN/GLOBULIN RATIO 1.2; BILIRUBIN,INDIRECT 0.5 mg/dl (0-1.1); BILIRUBIN,TOTAL 0.5 mg/dl (0.2-1.3); CALCIUM 8.9 mg/dl (8.4-10.2); CHOL/HDL RATIO 3.7 RATIO; CREATININE 0.84 mg/dl (0.44-1.00); MAGNESIUM 1.9 mg/dl (1.7-2.5); PHOSPHORUS 4.2 mg/dl (2.5-4.9); POTASSIUM 4.4 mmol/L (3.5-5.1); TOTAL PROTEIN 6.4 g/dl (6.1-8.1)
[2017-05-13 07:22] VITALS: BP 103/55; RESP 18
[2017-05-13 07:59] LABS: THYROID STIMULATING HORMONE 0.258 MIU/L (0.465-4.680)
[2017-05-13] MEDS: FAMOTIDINE 20 MG INJ IV SCH ×2 (08:19→20:52)
[2017-05-13] MEDS: CIPROFLOXACIN 400MG/D5W 200 ML IVPB SCH ×2 (08:20→20:52)
[2017-05-13] MEDS: NICOTINE (14 MG/24 HR) PATCH TRANSDERM SCH (08:20)
--- NOTE | 2017-05-13 08:55 | PN ---
Date/Time of Note Date/Time of Note DATE: 05/13/17 TIME: 08:55 Assessment/Plan VTE Prophylaxis VTE Prophylaxis Intervention: ambulation Lines/Catheters IV C[facility] Type (from [facility] Peripheral IV Urinary Cath still in place: No Assessment/Plan Chief Complaint/Hosp Course 1. Abdominal pain, multifactorial secondary to possible pelvic inflammatory disease /Ovarian cyst/Infected IUD with other non COLLAR FELLER causes including urinary tract infection and mild pancreatitis. 05/12/17.Pelvic ultrasound: Enlarged ovaries with multiple follicles and dominant heterogeneous lesion in each ovary which could be due to complex cyst or possibly endometriomas. 05/12/17. CT abdomen and pelvis: Trace fluid in the cul-de-sac without intra-abdominal free air or abscess. 05/12/17. Urinalysis positive for bacteria, WBC, yeast and leukocyte esterase. 05/12/17. Lipase 381 -Continue IV fluid hydration, broad-spectrum antibiotics and adequate analgesia -COLLAR FELLER evaluation appreciated. -Follow-up with vaginal culture reports. 2. Urinary tract infection. Urine culture growing gram-negative rods. -Continue with broad-spectrum antibiotics and follow-up final cultures. 3. Possible pancreatitis. Resolved. -Advance diet as tolerated. -Trend lipase daily. 4.Pelvic inflammatory disease /Ovarian cyst -Status post IUD removal -Continue antibiotics and follow up on cultures. 5. SIRS with leukocytosis likely secondary to UTI and possible PID. Improving. -Again, patient will be continued on broad-spectrum antibiotics and we will follow up on final cultures. 6. Anxiety/bipolar disorder. -Resume home medications-patient wants to continue her Xanax 2 mg daily. 7. Alcohol abuse. Currently no signs of DTs. -Daily banana bag and prn anxiolytics. -Cessation advised and professor of social work consult for providing appropriate resources 8. Marijuana abuse -Patient was counseled DVT prophylaxis: Ambulation/SCDs PUD prophylaxis: Pepcid Plan: Continue current medical management. Follow-up with COLLAR FELLER recommendations. Follow-up on final cultures. Case discussed with . Problems: Subjective 24 Hr Interval Summary Free Text/Dictation Patient sitting up in bed, playing game on her smart phone. No acute overnight episodes. Exam/Review of Systems Vital Signs Vitals Vital Signs Date Time Temp Pulse Resp B/P Pulse Ox O2 Delivery O2 Flow Rate FiO2 05/13/17 07:22 98.3 90 18 103/55 100 05/12/17 09:14 Room Air Intake and Output 05/12/17 05/12/17 05/13/17 15:00 23:00 07:00 Intake Total 200 ml 1910 ml Output Total 600 ml Balance 200 ml 1310 ml Exam General: Anxious looking young female , not in any acute distress . HEENT: Normocephalic, Atraumatic, No laceration or hematoma; Eyes: PEERL, Conjunctiva clear, Anicteric sclera Neck: Supple without any lymphadenopathy, nontender, no JVD, no carotid bruits, trachea midline, no thyromegaly Cardiac: S1, S2 auscultated, regular rhythm and rate, no mumurs or gallop Pulmonary: Normal respiratory effort. Chest clear to auscultation bilaterally, no adventitious breath sounds GI: Tenderness to periumbilical area. There is also a small burn area on the right lower quadrant. Otherwise abdomen normal to inspection. Soft, non- distended, no masses, no rebound tenderness or guarding. Bowel sounds active on all four quadrants Genitourinary: With foul-smelling vaginal discharge.. Extremities: No cyanosis, clubbing, or edema. Pulses [2+] bilaterally. Full ROM on all four extremities. No focal weakness appreciated. Neurologic: Alert to person, place, time, and situation. Affect appropriate, intact sensation. Skin: With multiple tattoos all over the body. Otherwise skin clean,dry, and intact. No ecchymosis, no rashes, or lesions Results Result Diagram: 05/13/17 0530 05/13/17 0530 Results 24 hrs Laboratory Tests Test 05/12/17 10:21 05/12/17 10:22 05/12/17 12:04 05/12/17 14:17 [place] Level < 0.6 L Hepatitis B Surface Antigen NEGATIVE Hepatitis B Core Total Antibody NEGATIVE Hepatitis C Antibody NEGATIVE Hepatitis A IgM Antibody NON-REACTIVE HIV (1&2) Antibody NEGATIVE Test 05/13/17 05:30 White Blood Count 13.1 #H Red Blood Count 3.57 L Hemoglobin 11.9 L Hematocrit 35.8 L Mean Corpuscular Volume 100.3 Mean Corpuscular Hemoglobin 33.3 H Mean Corpuscular Hemoglobin Concent 33.2 Red Cell Distribution Width 11.9 Platelet Count 309 Mean Platelet Volume 10.3 Neutrophils % 73.8 Lymphocytes % 17.6 Monocytes % 6.1 Eosinophils % 1.1 Basophils % 0.7 Nucleated Red Blood Cells % 0.0 Neutrophils # 9.7 H Lymphocytes # 2.3 Monocytes # 0.8 Eosinophils # 0.2 Basophils # 0.1 Nucleated Red Blood Cells # 0.0 Sodium Level 144 Potassium Level 4.4 Chloride Level 106 Carbon Dioxide Level 28 Anion Gap 14 Blood Urea Nitrogen 6 L Creatinine 0.84 Glucose Level 73 Hemoglobin A1c 5.1 Calcium Level 8.9 Phosphorus Level 4.2 Magnesium Level 1.9 Total Bilirubin 0.5 Direct Bilirubin 0.00 Indirect Bilirubin 0.5 Aspartate Amino Transf (AST/SGOT) 14 L Alanine Aminotransferase (ALT/SGPT) 30 Alkaline Phosphatase 78 Total Protein 6.4 Albumin 3.5 Globulin 2.90 Albumin/Globulin Ratio 1.20 Triglycerides Level 53 Cholesterol Level 109 LDL Cholesterol, Calculated 69 HDL Cholesterol 29 L Cholesterol/HDL Ratio 3.7 Amylase Level 127 H Lipase 86 Thyroid Stimulating Hormone (TSH) 0.258 L Medications Medications Current Medications Sodium Chloride (NS) 1,000 ml @ 125 mls/hr Q8H IV Last administered on 10:24; Admin Dose 125 MLS/HR; Start 05/12/17 at 09:02 Ondansetron HCl (Zofran Inj) 4 mg Q6H PRN IV NAUSEA AND/OR VOMITING; Start at 09:30 Acetaminophen (Tylenol Supp) 650 mg Q6H PRN [place] PAIN LEVEL 1-3 OR FEVER; Start 05/12/17 at 09:30 Morphine Sulfate (morphine) 2 mg Q4H PRN IV SEVERE PAIN LEVEL 7-10 Last administered on 05/13/17 05:46; Admin Dose 2 MG; Start 05/12/17 at 09:30 Famotidine 20 mg 20 mg Q12 IV Last administered on 05/13/17 08:19; Admin Dose 20 MG; Start 05/12/17 at 21:00 Ciprofloxacin/ Dextrose 200 ml @ 200 mls/hr Q12 IVPB Last administered on 05/13 08:20; Admin Dose 200 MLS/HR; Start 05/12/17 at 21:00 Metronidazole (Flagyl 500 Mg (Pmx)) 100 ml @ 100 mls/hr Q8 IVPB Last administered on 05/13/17 05:46; Admin Dose 100 MLS/HR; Start 05/12/17 at 14:00 Lorazepam 1 mg 1 mg Q2H PRN IV anxiety Last administered on 05/13/17 06:40; Admin Dose 1 MG; Start 05/12/17 at 09:30 Multivitamins/ Thiamine HCl/ Folic Acid/Sodium Chloride (Mvi Adult/ Vitamin B1/ Folic Acid/NS) 1,011.2 ml @ 125 mls/ hr DAILY@09 IVPB Last administered on 15:55; Admin Dose 125 MLS/HR; Start 05/12/17 at 11:00 Silver Sulfadiazine (Thermazene 1% 25 Gm) 1 applic DAILY TOP Last administered on 05/12/17 18:12; Admin Dose 1 APPLIC; Start 05/12/17 at 17:00 Nicotine (Nicoderm 14 Mg/ 24hr) 1 patch DAILY TRANSDERM Last administered on 08:20; Admin Dose 1 PATCH; Start 05/13/17 at 09:00 JULIA GUZMAN NP May 13, 2017 08:55
[2017-05-13] MEDS ORDERED: HEPATITIS A VACC 25 UNITS/0.5ML INJ IM* ONE (09:30)
[2017-05-13] MEDS ORDERED: HEPATITIS B VACCINE 5 MCG SYG (non-VFC) IM* ONE (09:30)
[2017-05-13] MEDS ORDERED: ALPRAZOLAM 1 MG TAB PO PRN (09:30)
[2017-05-13] MEDS: MULTIVITAMINS 10 ML, THIAMINE 100 MG, FOLIC ACID 1 MG in SOD CHLORIDE 0.9% 1,000 ML IVPB SCH (11:11)
[2017-05-13] MEDS: SILVER SULFADIAZINE 1% 25 GM CR TOP SCH (11:12)
[2017-05-13] MEDS: LITHIUM CARBONATE 300 MG CAP PO SCH ×2 (12:35→20:52)
--- NOTE | 2017-05-13 13:26 | PN ---
Date/Time of Note Date/Time of Note DATE: 05/13/17 TIME: 13:20 OB Subjective Subjective Subjective Feels improvement of abdominal pain compared to yesterday. slept trhough the night. tolerated clear liquid diet, Reports vaginal discharge significantly decreased compared to last 2 days Denies any fever, chills. OB Objective Objective Objective GA: A&Ox 4., was napping when arrived to the bed side Abdomen: soft, moderate tenderness in the RLQ. No rebound tenderness, no rigidity, no evidence of acute abdomen., no guarding, no rigidity Extremities: no calf tenderbess, SVE: There is tenderness more in the right adnexa. + CMT more toward moving the cervix to the right no fullness. Mucousy yellowish vaginal discharge noted in exam No fundal tenderness, no tenderness in the left side Hematology - 72 Hrs Test 05/12/17 05:57 05/13/17 05:30 White Blood Count 16.710^3/ul (4.8-10.8) H 13.110^3/ul (4.8-10.8) #H Red Blood Count 4.1110^6/ul (4.20-5.40) L 3.5710^6/ul (4.20-5.40) L Hemoglobin 13.6g/dl (12.0-16.0) 11.9g/dl (12.0-16.0) L Hematocrit 40.3% (37.0-47.0) 35.8% (37.0-47.0) L Mean Corpuscular Volume 98.1fl (82.0-101.0) 100.3fl (82.0-101.0) Mean Corpuscular Hemoglobin 33.1pg (29.0-33.0) H 33.3pg (29.0-33.0) H Mean Corpuscular Hemoglobin Concent 33.7g/dl (32.0-37.0) 33.2g/dl (32.0-37.0) Red Cell Distribution Width 12.0% (11.5-14.5) 11.9% (11.5-14.5) Platelet Count 67500^3/UL (140-415) 26218^3/UL (140-415) Mean Platelet Volume 10.0fl (7.4-10.4) 10.3fl (7.4-10.4) Neutrophils % 76.1% (39.0-77.0) 73.8% (39.0-77.0) Lymphocytes % 16.2% (15.0-51.0) 17.6% (15.0-51.0) Monocytes % 5.2% (0.0-11.0) 6.1% (0.0-11.0) Eosinophils % 1.6% (0.0-7.0) 1.1% (0.0-7.0) Basophils % 0.5% (0.0-2.0) 0.7% (0.0-2.0) Nucleated Red Blood Cells % 0.0/100WBC (0.0-0.0) 0.0/100WBC (0.0-0.0) Neutrophils # 12.710^3/ul (1.6-7.5) H 9.710^3/ul (1.6-7.5) H Lymphocytes # 2.710^3/ul (0.8-2.9) 2.310^3/ul (0.8-2.9) Monocytes # 0.910^3/ul (0.3-0.9) 0.810^3/ul (0.3-0.9) Eosinophils # 0.310^3/ul (0.0-0.5) 0.210^3/ul (0.0-0.5) Basophils # 0.110^3/ul (0.0-0.1) 0.110^3/ul (0.0-0.1) Nucleated Red Blood Cells # 0.010^3/ul (0.0-0.0) 0.010^3/ul (0.0-0.0) Chemistry Test 05/12/17 05:57 05/13/17 05:30 Sodium Level 144mmol/L (135-144) 144mmol/L (135-144) Potassium Level 3.7mmol/L (3.5-5.1) 4.4mmol/L (3.5-5.1) Chloride Level 100mmol/L (97-110) 106mmol/L (97-110) Carbon Dioxide Level 29mmol/L (21-31) 28mmol/L (21-31) Anion Gap 19 (8-16) H 14 (8-16) Blood Urea Nitrogen 9mg/dl (7-20) 6mg/dl (7-20) L Creatinine 0.81mg/dl (0.44-1.00) 0.84mg/dl (0.44-1.00) Glucose Level 81mg/dl (70-220) 73mg/dl (70-220) Calcium Level 9.2mg/dl (8.4-10.2) 8.9mg/dl (8.4-10.2) Total Bilirubin 0.3mg/dl (0.2-1.3) 0.5mg/dl (0.2-1.3) Direct Bilirubin 0.00mg/dl (0.00-0.20) 0.00mg/dl (0.00-0.20) Indirect Bilirubin 0.3mg/dl (0-1.1) 0.5mg/dl (0-1.1) Aspartate Amino Transf (AST/SGOT) 21IU/L (15-46) 14IU/L (15-46) L Alanine Aminotransferase (ALT/SGPT) 38IU/L (13-69) 30IU/L (13-69) Alkaline Phosphatase 92IU/L (42-121) 78IU/L (42-121) Total Protein 7.3g/dl (6.1-8.1) 6.4g/dl (6.1-8.1) Albumin 4.1g/dl (3.3-4.9) 3.5g/dl (3.3-4.9) Globulin 3.20g/dl (1.3-3.2) 2.90g/dl (1.3-3.2) Albumin/Globulin Ratio 1.28 1.20 Lipase 381U/L (23-300) H 86U/L (23-300) Hemoglobin A1c 5.1% (0-5.9) Phosphorus Level 4.2mg/dl (2.5-4.9) Magnesium Level 1.9mg/dl (1.7-2.5) Triglycerides Level 53mg/dl (0-149) Cholesterol Level 109mg/dl (100-200) LDL Cholesterol, Calculated 69mg/dl HDL Cholesterol 29mg/dl (33-83) L Cholesterol/HDL Ratio 3.7RATIO Amylase Level 127U/L (11-123) H Thyroid Stimulating Hormone (TSH) 0.258MIU/L (0.465-4.680) OB Assessment/Plan Other Assessment: HD #2 Admitted for abominal pain likely related to PID Improved lab and clinical exam Patient feels improvement IUD user., polygamy. IUD removed Urine consistent with UTI. On abx, Continue same management Urine Gc/ chlamydia sent STD labs are negative Patient was offered hep B and A vaccine due to her high risk behaviour. reports had vaccines before Alcholism, management by primary team Continue to follow up DL PRESSLEY MD May 13, 2017 13:26
[2017-05-13 14:42] VITALS: BP 122/69; RESP 18
[2017-05-13 16:25] LABS: BARBITURATES NEGATIVE (NEGATIVE); BENZODIAZEPINES POSITIVE (NEGATIVE); CANNABINOIDS POSITIVE (NEGATIVE); COCAINE NEGATIVE (NEGATIVE); OPIATES POSITIVE (NEGATIVE)
[2017-05-13] MEDS: ALPRAZOLAM 1 MG TAB PO PRN (17:23)
[2017-05-13 19:55] VITALS: BP 114/70; RESP 19
[2017-05-13] MEDS: QUETIAPINE 100 MG TAB PO SCH (20:53)
[2017-05-14] MEDS: SOD CHLORIDE 0.9% 1,000 ML IV SCH ×4 (01:17→20:31)
[2017-05-14] MEDS: morphine 2 MG INJ IV PRN ×5 (01:50→23:01)
[2017-05-14] MEDS: ALPRAZOLAM 1 MG TAB PO PRN ×3 (01:52→18:02)
[2017-05-14 02:57] VITALS: BP 89/53; RESP 20
[2017-05-14] MEDS: metroNIDAZOLE 500 MG/NS (PMX) 100 ML IVPB SCH (05:40)
[2017-05-14 05:44] LABS: BASOPHIL # 0.1 10^3/ul (0.0-0.1); EOSINOPHILS # 0.2 10^3/ul (0.0-0.5); EOSINOPHILS % 2.7 % (0.0-7.0); HEMATOCRIT 34.6 % (37.0-47.0); HEMOGLOBIN 11.6 g/dl (12.0-16.0); LYMPHOCYTES # 1.9 10^3/ul (0.8-2.9); LYMPHOCYTES % 22.5 % (15.0-51.0); MEAN CORPUSCULAR HEMOGLOBIN 32.9 pg (29.0-33.0); MEAN CORPUSCULAR HGB CONC 33.5 g/dl (32.0-37.0); MEAN PLATELET VOLUME 10.2 fl (7.4-10.4); MONOCYTE # 0.6 10^3/ul (0.3-0.9); MONOCYTES % 7.6 % (0.0-11.0); NEUTROPHIL # 5.4 10^3/ul (1.6-7.5); NEUTROPHILS % 65.7 % (39.0-77.0); PLATELET COUNT 298 10^3/UL (140-415); RED BLOOD COUNT 3.53 10^6/ul (4.20-5.40); RED CELL DISTRIBUTION WIDTH 12.1 % (11.5-14.5); WHITE BLOOD COUNT 8.2 10^3/ul (4.8-10.8)
[2017-05-14 06:20] LABS: CALCIUM 8.7 mg/dl (8.4-10.2); CREATININE 0.72 mg/dl (0.44-1.00)
[2017-05-14 07:19] VITALS: BP 92/55; RESP 18
[2017-05-14] MEDS: LITHIUM CARBONATE 300 MG CAP PO SCH ×2 (09:00→20:29)
[2017-05-14] MEDS: FAMOTIDINE 20 MG INJ IV SCH (09:00)
[2017-05-14] MEDS: NICOTINE (14 MG/24 HR) PATCH TRANSDERM SCH (09:01)
[2017-05-14] MEDS: SILVER SULFADIAZINE 1% 25 GM CR TOP SCH (09:01)
--- NOTE | 2017-05-14 09:02 | PN ---
Date/Time of Note Date/Time of Note DATE: 05/14/17 TIME: 08:58 Assessment/Plan VTE Prophylaxis VTE Prophylaxis Intervention: ambulation, SCD's Lines/Catheters IV C[facility]ter Type (from [facility] Peripheral IV Urinary Cath still in place: No Assessment/Plan Chief Complaint/Hosp Course 1. Abdominal pain, multifactorial secondary to possible pelvic inflammatory disease /Ovarian cyst with other non ASSISTANT PRESS OPERATOR causes including urinary tract infection and mild pancreatitis. 05/12/17.Pelvic ultrasound: Enlarged ovaries with multiple follicles and dominant heterogeneous lesion in each ovary which could be due to complex cyst or possibly endometriomas. 05/12/17. CT abdomen and pelvis: Trace fluid in the cul-de-sac without intra-abdominal free air or abscess. 05/12/17. Urinalysis positive for bacteria, WBC, yeast and leukocyte esterase. 05/12/17. Lipase 381 -Continue IV fluid hydration, broad-spectrum antibiotics and adequate analgesia -ASSISTANT PRESS OPERATOR evaluation appreciated. -Follow-up with final vaginal culture reports. 2. E. coli urinary tract infection. -Change antibiotics to ceftriaxone based on sensitivity report. 3. Possible pancreatitis. Resolved. -Advance diet as tolerated. 4.Pelvic inflammatory disease /Ovarian cyst -Status post IUD removal -Continue antibiotics and follow up on cultures. 6. SIRS with leukocytosis likely secondary to UTI and possible PID. Resolved -Again, patient will be continued on broad-spectrum antibiotics and we will follow up on final cultures. 7. Anxiety/bipolar disorder. -Continue home medications. 8. Alcohol abuse. Currently no signs of DTs. -Cessation advised and social services technician consult for providing appropriate resources 9. Marijuana abuse -Patient was counseled DVT prophylaxis: Ambulation/SCDs PUD prophylaxis: Pepcid Plan: Continue current medical management. Follow-up with ASSISTANT PRESS OPERATOR recommendations. Follow-up on final cultures. Disposition: Estimate discharge tomorrow on oral antibiotics. Case discussed with . Problems: Subjective 24 Hr Interval Summary Free Text/Dictation No acute overnight episodes. Exam/Review of Systems Vital Signs Vitals Vital Signs Date Time Temp Pulse Resp B/P Pulse Ox O2 Delivery O2 Flow Rate FiO2 05/14/17 07:19 98.0 60 18 92/55 98 05/12/17 09:14 Room Air Intake and Output 05/13/17 05/13/17 05/14/17 15:00 23:00 07:00 Intake Total 600 ml 2365 ml 2206.2 ml Balance 600 ml 2365 ml 2206.2 ml Exam General: Anxious looking young female , not in any acute distress . HEENT: Normocephalic, Atraumatic, No laceration or hematoma; Eyes: PEERL, Conjunctiva clear, Anicteric sclera Neck: Supple without any lymphadenopathy, nontender, no JVD, no carotid bruits, trachea midline, no thyromegaly Cardiac: S1, S2 auscultated, regular rhythm and rate, no mumurs or gallop Pulmonary: Normal respiratory effort. Chest clear to auscultation bilaterally, no adventitious breath sounds GI: Tenderness to periumbilical area. There is also a small burn area on the right lower quadrant. Otherwise abdomen normal to inspection. Soft, non- distended, no masses, no rebound tenderness or guarding. Bowel sounds active on all four quadrants Genitourinary: With foul-smelling clear vaginal discharge Extremities: No cyanosis, clubbing, or edema. Pulses [2+] bilaterally. Full ROM on all four extremities. No focal weakness appreciated. Neurologic: Alert to person, place, time, and situation. Affect appropriate, intact sensation. Skin: With multiple tattoos all over the body. Otherwise skin clean,dry, and intact. No ecchymosis, no rashes, or lesions Results Result Diagram: 05/14/17 0517 05/14/17 0517 Results 24 hrs Laboratory Tests Test 05/13/17 15:00 05/14/17 05:17 Urine Opiates Screen POSITIVE Urine Barbiturates NEGATIVE Urine Amphetamines Screen NEGATIVE Urine Benzodiazepines Screen POSITIVE Urine Cocaine Screen NEGATIVE Urine Cannabinoids POSITIVE White Blood Count 8.2 # Red Blood Count 3.53 L Hemoglobin 11.6 L Hematocrit 34.6 L Mean Corpuscular Volume 98.0 Mean Corpuscular Hemoglobin 32.9 Mean Corpuscular Hemoglobin Concent 33.5 Red Cell Distribution Width 12.1 Platelet Count 298 Mean Platelet Volume 10.2 Neutrophils % 65.7 Lymphocytes % 22.5 Monocytes % 7.6 Eosinophils % 2.7 Basophils % 1.0 Nucleated Red Blood Cells % 0.0 Neutrophils # 5.4 Lymphocytes # 1.9 Monocytes # 0.6 Eosinophils # 0.2 Basophils # 0.1 Nucleated Red Blood Cells # 0.0 Sodium Level 143 Potassium Level 4.0 Chloride Level 107 Carbon Dioxide Level 25 Anion Gap 15 Blood Urea Nitrogen 5 L Creatinine 0.72 Glucose Level 79 Calcium Level 8.7 Lipase 47 Medications Medications Current Medications Sodium Chloride (NS) 1,000 ml @ 125 mls/hr Q8H IV Last administered on 01:17; Admin Dose 125 MLS/HR; Start 05/12/17 at 09:02 Ondansetron HCl (Zofran Inj) 4 mg Q6H PRN IV NAUSEA AND/OR VOMITING; Start at 09:30 Acetaminophen (Tylenol Supp) [address] PAIN LEVEL 1-3 OR FEVER; Start 05/12/17 at 09:30 Morphine Sulfate (morphine) 2 mg Q4H PRN IV SEVERE PAIN LEVEL 7-10 Last administered on 05/14/17 01:50; Admin Dose 2 MG; Start 05/12/17 at 09:30 Famotidine 20 mg 20 mg Q12 IV Last administered on 05/13/17 20:52; Admin Dose 20 MG; Start 05/12/17 at 21:00 Ciprofloxacin/ Dextrose 200 ml @ 200 mls/hr Q12 IVPB Last administered on 05/13 20:52; Admin Dose 200 MLS/HR; Start 05/12/17 at 21:00 Metronidazole 100 ml @ 100 mls/hr Q8 IVPB Last administered on 05/14/17 05:40 ; Admin Dose 100 MLS/HR; Start 05/12/17 at 14:00 Multivitamins/ Thiamine HCl/ Folic Acid/Sodium Chloride (Mvi Adult/ Vitamin B1/ Folic Acid/NS) 1,011.2 ml @ 125 mls/ hr DAILY@09 IVPB Last administered on 11:11; Admin Dose 125 MLS/HR; Start 05/12/17 at 11:00 Silver Sulfadiazine (Thermazene 1% 25 Gm) 1 applic DAILY TOP Last administered on 05/13/17 11:12; Admin Dose 1 APPLIC; Start 05/12/17 at 17:00 Nicotine (Nicoderm 14 Mg/ 24hr) 1 patch DAILY TRANSDERM Last administered on 08:20; Admin Dose 1 PATCH; Start 05/13/17 at 09:00 [place] Carbonate ([place] Carbonate) 300 mg BID PO Last administered on 20:52; Admin Dose 300 MG; Start 05/13/17 at 10:00 Quetiapine Fumarate (Seroquel) 300 mg HS PO Last administered on 05/13/17 20: 53; Admin Dose 300 MG; Start 05/13/17 at 21:00 Alprazolam (Xanax) 1 mg Q8H PRN PO ANXIETY Last administered on 05/14/17 01: 52; Admin Dose 1 MG; Start 05/13/17 at 17:30 JULIA GUZMAN NP May 14, 2017 09:01
[2017-05-14] MEDS: CEFTRIAXONE 1 GM/50 ML (PMX) 50 ML IVPB SCH (09:17)
[2017-05-14] MEDS: MULTIVITAMINS 10 ML, THIAMINE 100 MG, FOLIC ACID 1 MG in SOD CHLORIDE 0.9% 1,000 ML IVPB SCH (09:30)
--- NOTE | 2017-05-14 12:34 | QN ---
Documentation Comment May 14, 2017 Hospital ground note This patient is a 26 years old 3 para 1 2 who was admitted to the emergency room complaining of lower abdominal pain Ultrasound study reported possibility of ovarian cyst, pelvic inflammatory disease, ovarian cyst. Placed on antibiotics. On pelvic examination 2 days ago and I reviewed the was removed culture was taken and sent for pathology the detailed report of the bacteriology and sensitivity is not available yet Her condition improved quite a bit. She still complaining of a slight abdominal pain. No CVA tenderness. She is a Rocephin 1 g every 24 hours. Abdomen: soft, moderate tenderness in the RLQ. No rebound tenderness, no rigidity, no evidence of acute abdomen., no guarding, no rigidity Laboratory Tests Test 05/13/17 15:00 05/14/17 05:17 Urine Opiates Screen POSITIVE Urine Barbiturates NEGATIVE Urine Amphetamines Screen NEGATIVE Urine Benzodiazepines Screen POSITIVE Urine Cocaine Screen NEGATIVE Urine Cannabinoids POSITIVE White Blood Count 8.210^3/ul Red Blood Count 3.5310^6/ul Hemoglobin 11.6g/dl Hematocrit 34.6% Mean Corpuscular Volume 98.0fl Mean Corpuscular Hemoglobin 32.9pg Mean Corpuscular Hemoglobin Concent 33.5g/dl Red Cell Distribution Width 12.1% Platelet Count 35395^3/UL Mean Platelet Volume 10.2fl Neutrophils % 65.7% Lymphocytes % 22.5% Monocytes % 7.6% Eosinophils % 2.7% Basophils % 1.0% Nucleated Red Blood Cells % 0.0/100WBC Neutrophils # 5.410^3/ul Lymphocytes # 1.910^3/ul Monocytes # 0.610^3/ul Eosinophils # 0.210^3/ul Basophils # 0.110^3/ul Nucleated Red Blood Cells # 0.010^3/ul Sodium Level 143mmol/L Potassium Level 4.0mmol/L Chloride Level 107mmol/L Carbon Dioxide Level 25mmol/L Anion Gap 15 Blood Urea Nitrogen 5mg/dl Creatinine 0.72mg/dl Glucose Level 79mg/dl Calcium Level 8.7mg/dl Lipase 47U/L Current Medications Medications (Trade) Dose Ordered Sig/Sherry Route PRN Reason Start Time Stop Time Status Last Admin Dose Admin Sodium Chloride (NS) 1,000 ml @ 1,000 mls/hr Q1H STAT IV 05/12/17 05:31 05/12/17 06:30 DC 05/12/17 06:04 Ondansetron HCl (Zofran Inj) 4 mg ONCE STAT IV 05/12/17 05:31 05/12/17 05:33 DC 05/12/17 06:03 Morphine Sulfate 4 mg 4 mg ONCE STAT IV 05/12/17 05:31 05/12/17 05:33 DC 05/12/17 06:04 Ceftriaxone Sodium 50 ml @ 100 mls/hr ONCE ONCE IVPB 05/12/17 07:00 05/12/17 07:29 DC 05/12/17 07:01 Metronidazole (Flagyl 500 Mg (Pmx)) 100 ml @ 100 mls/hr ONCE ONCE IVPB 05/12/17 07:00 05/12/17 07:59 DC 05/12/17 07:51 Morphine Sulfate 2 mg 2 mg ONCE ONCE IV 05/12/17 07:30 05/12/17 07:31 DC 05/12/17 07:37 Sodium Chloride (NS) 1,000 ml @ 125 mls/hr Q8H IV 05/12/17 09:02 05/14/17 01:17 IV Flush (NS 3 ml) 3 ml PER PROTOCOL IV 05/12/17 09:30 Ondansetron HCl (Zofran Inj) 4 mg Q6H PRN IV NAUSEA AND/OR VOMITING 05/12/17 09:30 Acetaminophen (Tylenol Supp) 650 mg Q6H PRN [place] PAIN LEVEL 1-3 OR FEVER 05/12/17 09:30 Morphine Sulfate (morphine) 2 mg Q4H PRN IV SEVERE PAIN LEVEL 7-10 05/12/17 09:30 05/14/17 09:02 Famotidine 20 mg 20 mg Q12 IV 05/12/17 21:00 05/14/17 09:00 Ciprofloxacin/ Dextrose 200 ml @ 200 mls/hr Q12 IVPB 05/12/17 21:00 05/14/17 08:56 DC 05/13/17 20:52 Metronidazole (Flagyl 500 Mg (Pmx)) 100 ml @ 100 mls/hr Q8 IVPB 05/12/17 14:00 05/14/17 08:57 DC 05/14/17 05:40 Lorazepam 1 mg 1 mg Q2H PRN IV anxiety 05/12/17 09:30 05/13/17 09:26 DC 05/13/17 06:40 Multivitamins/ Thiamine HCl/ Folic Acid/Sodium Chloride (Mvi Adult/ Vitamin B1/Folic Acid/NS) 1,011.2 ml @ 125 mls/ hr DAILY@09 IVPB 05/12/17 11:00 05/14/17 09:30 Silver Sulfadiazine (Thermazene 1% 25 Gm) 1 applic DAILY TOP 05/12/17 17:00 05/14/17 09:01 Nicotine (Nicoderm 14 Mg/ 24hr) 1 patch DAILY TRANSDERM 05/13/17 09:00 05/14/17 09:01 Hepatitis B Vaccine (RECOMBIVAX HB (non-VFC)) 5 mcg ONCE ONCE IM* 05/13/17 09:30 05/13/17 09:34 DC Hepatitis A Vaccine Inactivated (Vaqta) 25 units ONCE ONCE IM* 05/13/17 09:30 05/13/17 16:00 DC Alprazolam (Xanax) 2 mg DAILY PRN PO ANXIETY 05/13/17 09:30 05/13/17 17:11 DC 05/13/17 09:38 [place] Carbonate ([place] Carbonate) 300 mg BID PO 05/13/17 10:00 05/14/17 09:00 Quetiapine Fumarate (Seroquel) 300 mg HS PO 05/13/17 21:00 05/13/17 20:53 Alprazolam 1 mg 1 mg Q8H PRN PO ANXIETY 05/13/17 17:30 05/14/17 09:32 Ceftriaxone Sodium (Rocephin) 50 ml @ 100 mls/hr Q24H IVPB 05/14/17 09:00 05/14/17 09:17 She will need a psychiatric evaluation. She says she cannot afford co-pay when she goes to see the psychiatrist. I mentioned the need for contraception at this time. Patient could be oral contraceptive. Long-acting injectable progestin active agent subcu implant and several other alternative available beside IUD discussed with the patient RAY HECK MD May 14, 2017 12:34
[2017-05-14 14:11] VITALS: BP 114/71; RESP 18
[2017-05-14 19:42] VITALS: BP 138/79; RESP 20
[2017-05-14] MEDS: QUETIAPINE 100 MG TAB PO SCH (20:29)
[2017-05-14] MEDS: FAMOTIDINE 20 MG TAB PO SCH (20:29)
[2017-05-15 02:20] VITALS: BP 102/58; RESP 18
[2017-05-15] MEDS: ALPRAZOLAM 1 MG TAB PO PRN (04:04)
[2017-05-15] MEDS: morphine 2 MG INJ IV PRN ×3 (04:07→12:43)
[2017-05-15] MEDS ORDERED: LORAZEPAM 2 MG INJ IV ONE ×2 (05:30→14:00)
[2017-05-15 07:55] VITALS: BP 109/76; RESP 18
[2017-05-15] MEDS: NICOTINE (14 MG/24 HR) PATCH TRANSDERM SCH (08:12)
[2017-05-15] MEDS: CEFTRIAXONE 1 GM/50 ML (PMX) 50 ML IVPB SCH (08:12)
[2017-05-15] MEDS: LITHIUM CARBONATE 300 MG CAP PO SCH (08:13)
[2017-05-15] MEDS: FAMOTIDINE 20 MG TAB PO SCH (08:13)
[2017-05-15] MEDS: SILVER SULFADIAZINE 1% 25 GM CR TOP SCH (08:13)
[2017-05-15] MEDS: MULTIVITAMINS 10 ML, THIAMINE 100 MG, FOLIC ACID 1 MG in SOD CHLORIDE 0.9% 1,000 ML IVPB SCH (08:15)
[2017-05-15] MEDS: SOD CHLORIDE 0.9% 1,000 ML IV SCH (09:02)
[2017-05-15 09:52] LABS: BASOPHIL # 0.1 10^3/ul (0.0-0.1); BASOPHILS % 1.4 % (0.0-2.0); EOSINOPHILS # 0.3 10^3/ul (0.0-0.5); EOSINOPHILS % 3.7 % (0.0-7.0); HEMATOCRIT 39.1 % (37.0-47.0); HEMOGLOBIN 12.9 g/dl (12.0-16.0); LYMPHOCYTES % 27.6 % (15.0-51.0); MEAN CORPUSCULAR HEMOGLOBIN 32.7 pg (29.0-33.0); MEAN PLATELET VOLUME 9.9 fl (7.4-10.4); MONOCYTE # 0.5 10^3/ul (0.3-0.9); MONOCYTES % 6.8 % (0.0-11.0); NEUTROPHIL # 4.3 10^3/ul (1.6-7.5); NEUTROPHILS % 60.1 % (39.0-77.0); PLATELET COUNT 314 10^3/UL (140-415); RED BLOOD COUNT 3.95 10^6/ul (4.20-5.40); RED CELL DISTRIBUTION WIDTH 12.1 % (11.5-14.5); WHITE BLOOD COUNT 7.1 10^3/ul (4.8-10.8)
--- NOTE | 2017-05-15 12:27 | PDOCDIS ---
Discharge Instructions CONDITION Patient Condition: Stable HOME CARE INSTRUCTIONS: Special Diet: REGULAR FOLLOW UP/APPOINTMENTS Follow-up Plan 1.Follow up with primary care physician in 1 week If you don't have one please let someone know, we can give you resources that may help you pick one. You may also call your insurance company to assign one to you. Review your medication list with your nurse before leaving and if you need new prescriptions please let your nurse know. I may have made changes to your home medications or given you new prescriptions, please let your primary doctor know as well. Stay compliant with your medications and report any side effects to your PCP or pharmacist. Return to the ER if you have any concerns and cannot reach your doctors or call your insurance company, they usually have a nurse that can help you. 2. Follow-up with outpatient psychiatrist. JULIA GUZMAN NP May 15, 2017 12:27
[2017-05-15] MEDS ORDERED: AZIT250T6 PO (12:30)
[2017-05-15] MEDS ORDERED: AZITHROMYCIN 250 MG TAB PO ONE (12:30)
[2017-05-15] MEDS ORDERED: HYDR-906 PO (13:01)
[2017-05-15] MEDS ORDERED: NITR-58 PO (13:08)
--- NOTE | 2017-05-15 13:27 | DS ---
Date/Time of Note Date/Time of Note DATE: 05/15/17 TIME: 13:18 Discharge Summary Admission/Discharge Info Admit Date/Time May 12, 2017 at 08:36 Discharge Date/Time Discharge Diagnosis 1. Pelvic inflammatory disease 2. Chlamydia trachomatis/N.Gonorrhoea 3. E. coli urinary tract infection. 4. Possible pancreatitis. Resolved. 5. SIRS with leukocytosis likely secondary to UTI and PID. Resolved 6. Narcotic seeking behaviors 7. Anxiety/bipolar disorder. 8. Alcohol abuse. 9. Marijuana abuse Patient Condition: Stable Consults ,DROPHAMMER OPERATOR Procedures 05/12/2017. CT abdomen and pelvis without contrast. Trace fluid in the cul-de- sac without intra-abdominal free air or abscess. 05/12/2017. Ultrasound pelvis complete and transvaginal.IUD. Enlarged ovaries with multiple follicles and dominant heterogeneous lesion in each ovary which could be due to complex cyst or possibly endometriomas. Hospital Course This is a 26-year-old female with psychiatric disorders including bipolar disorder, ADHD, PTSD, on lithium multiple psychiatric drugs at home, suicidal attempts, marijuana abuse, alcohol abuse, polygamy, IUD placed, narcotic seeking behaviors, previous multiple inpatient psychiatric admission, cholecystectomy, who presented to the emergency room with complaints of worsening abdominal pain for a 2-3 weeks duration. Patient also had foul- smelling vaginal discharges. She denied any history of sexually transmitted disease. However, patient was highly concerned about having STDs upon admission and wanted to check HIV status to. Patient also had drug-seeking behaviors. Patient was noted to have leukocytosis with WBC 16,700 with a mildly elevated lipase 381. Her urine analysis was positive. Patient was treated with IV fluids, morphine sulfate, IV broad-spectrum antibiotics and was admitted for further evaluation. CT abdomen and pelvis showed trace fluid in the cul-de-sac without intra- abdominal free air or abscess. Pelvic ultrasound showed presence of IUD and Enlarged ovaries with multiple follicles and dominant heterogeneous lesion in each ovary which could be due to complex cyst or possibly endometriomas. A DROPHAMMER OPERATOR consult was called. Patient was continued on broad-spectrum antibiotics, IV fluids and multivitamin. Blood urine, vaginal cultures were sent. She was continued on home medications for her underlying psychiatric disorders. Ney level was drawn and was subtherapeutic. Urine culture showed E. coli and was continued on appropriate antibiotic. A repeat culture was negative. Patient was evaluated by DROPHAMMER OPERATOR and had pelvic exam with removal of IUD. Speculum examination of the vagina with removal of IUD and cultures taken and sent for culture and sensitivity. Vaginal culture showed normal nicolette. Serology was negative for HIV and hepatitis. However, Chlamydia trachomatis and gonorrhea RNA was detected and serology study. She was treated with 1 g of azithromycin orally and ceftriaxone 1 g IV. Infection control also was notified. During the course of hospitalization, patient was noted to have drug-seeking behavior. During the course of hospitalization, patient found alert oriented 4 all the time. She did not have any hallucination or suicidal thoughts. Patient also had social work msw evaluation please refer to their notes. Patient condition improved with appropriate antibiotic and pain control. There was no further leukocytosis, fever or other signs of infection. There was no further vaginal discharges. At this time, patient does not need any further inpatient hospitalization for her medical illness. This recommendation was to discharge patient with outpatient follow-up with her regular psychiatrist. Patient was recommended to continue a low-dose Zithromax she already had PID. Patient was also given low-dose Miller for a total of 10 pills upon discharge PRN for abdominal pain. Disposition: Patient will be discharged home with recommendation of outpatient follow-up with psychiatrist and primary care follow-up. Patient verbalized discharge instructions. Condition at time of discharge is stable. Approximately 60 minutes was spent in coordinating the discharge on this patient. Case discussed with Dr. Johnson. Home Meds Active Scripts Nitrofurantoin Monohyd Macrocr* (Macrobid*) 100 Mg Capsr, 100 MG PO BID for 5 Days, CAP Prov:JULIA GUZMAN V. WATER AND FIRE TECHNICIAN 05/15/17 Hydrocodone/Acetaminophen (Miller 5-325 Tablet) 1 Each Tablet, 1 EACH PO Q6H Y for SEVERE PAIN LEVEL 7-10, #10 TAB Prov:YADIEL GUZMANA Jori WATER AND FIRE TECHNICIAN 05/15/17 Azithromycin* (Azithromycin*) 250 Mg Tablet, 250 MG PO DAILY for 7 Days, #7 TAB Prov:JULIA GUZMAN NP 05/15/17 Reported Medications Melatonin (Melatonin) Unknown Strength Tablet, PO HS, TAB 05/12/17 Biotin (BIOTIN) 1 Mg Capsule, PO, CAP 05/12/17 Amphet Iin-Jkusjt-C-Amphet (Adderall) 20 Mg Tablet, 20 MG PO DAILY, TAB 05/12/17 Alprazolam* (Xanax*) 2 Mg Tablet, 2 MG PO DAILY Y for ANXIETY, TAB 05/12/17 Quetiapine Fumarate* (Seroquel*) 300 Mg Tablet, 300 MG PO HS, TAB 05/12/17 Ney Carbonate* (Ney Carbonate*) 300 Mg Tablet, 300 MG PO BID, TAB 05/12/17 Follow-up Plan HOME CARE INSTRUCTIONS: Special Diet: REGULAR FOLLOW UP/APPOINTMENTS Follow-up Plan 1.Follow up with primary care physician in 1 week If you don't have one please let someone know, we can give you resources that may help you pick one. You may also call your insurance company to assign one to you. Review your medication list with your nurse before leaving and if you need new prescriptions please let your nurse know. I may have made changes to your home medications or given you new prescriptions, please let your primary doctor know as well. Stay compliant with your medications and report any side effects to your PCP or pharmacist. Return to the ER if you have any concerns and cannot reach your doctors or call your insurance company, they usually have a nurse that can help you. 2. Follow-up with outpatient psychiatrist. Primary Care Provider Care Physician No Primary Pending Labs Laboratory Tests Test 05/15/17 09:27 White Blood Count 7.110^3/ul (4.8-10.8) Red Blood Count 3.9510^6/ul (4.20-5.40) Hemoglobin 12.9g/dl (12.0-16.0) Hematocrit 39.1% (37.0-47.0) Mean Corpuscular Volume 99.0fl (82.0-101.0) Mean Corpuscular Hemoglobin 32.7pg (29.0-33.0) Mean Corpuscular Hemoglobin Concent 33.0g/dl (32.0-37.0) Red Cell Distribution Width 12.1% (11.5-14.5) Platelet Count 83366^3/UL (140-415) Mean Platelet Volume 9.9fl (7.4-10.4) Neutrophils % 60.1% (39.0-77.0) Lymphocytes % 27.6% (15.0-51.0) Monocytes % 6.8% (0.0-11.0) Eosinophils % 3.7% (0.0-7.0) Basophils % 1.4% (0.0-2.0) Nucleated Red Blood Cells % 0.0/100WBC (0.0-0.0) Neutrophils # 4.310^3/ul (1.6-7.5) Lymphocytes # 2.010^3/ul (0.8-2.9) Monocytes # 0.510^3/ul (0.3-0.9) Eosinophils # 0.310^3/ul (0.0-0.5) Basophils # 0.110^3/ul (0.0-0.1) Nucleated Red Blood Cells # 0.010^3/ul (0.0-0.0) Lipase 101U/L (23-300) JULIA GUZMAN NP May 15, 2017 13:27 JULIA GUZMAN NP May 15, 2017 13:27
[2017-05-16] MEDS ORDERED: ALPR1TAB2 PO (17:22)
--- NOTE | 2017-05-18 17:32 | QN ---
JULIA GUZMAN NP 05/18/17 1732: Documentation Comment Spoke with significant other Tasha Rico at [phone] (who picked patient from hospital upon discharge) and he will contact .Jeanette Pollard to shrimp picker her prescription from [facility]. Message also left in any case, if she is not able to get her prescription, she can come back to [facility] ER. Case discussed with . ALEX VINSON MD 05/18/17 7359: Documentation Comment spoke to pt whom stated she was very confused regarding her abx and would rather go to her local ED. per her request i called [facility] in [place] and appraised them of the situation recieved call from [facility] at 1030pm-pt in their ER at that time. reviewed labs and clinical course with provider their. we both agreed either 14 days of doxy or a second dose of azitrho were reasonable. JULIA GUZMAN NP May 18, 2017 17:32 ALEX VINSON MD May 18, 2017 22:45
== END 2017-05-15 16:45 | disposition home or self-care (01) | DRG 757 ==
LOC: E/R 04:30 → MS2 08:36
PROVIDERS: ADMIT Internal Medicine; ATTEND Internal Medicine
DX: N73.9 Female pelvic inflammatory disease, unspecified (principal); K85.90 Acute pancreatitis without necrosis or infection, unspecified; A54.9 Gonococcal infection, unspecified; N39.0 Urinary tract infection, site not specified; F10.10 Alcohol abuse, uncomplicated; B37.9 Candidiasis, unspecified; B96.20 Unspecified Escherichia coli [E. coli] as the cause of diseases classified elsewhere; A74.9 Chlamydial infection, unspecified; F41.9 Anxiety disorder, unspecified; F12.90 Cannabis use, unspecified, uncomplicated; F17.200 Nicotine dependence, unspecified, uncomplicated; F31.9 Bipolar disorder, unspecified; F90.9 Attention-deficit hyperactivity disorder, unspecified type; F43.10 Post-traumatic stress disorder, unspecified; N83.8 Other noninflammatory disorders of ovary, fallopian tube and broad ligament; N20.0 Calculus of kidney; N83.202 Unspecified ovarian cyst, left side; N83.201 Unspecified ovarian cyst, right side; N89.8 Other specified noninflammatory disorders of vagina; X08.8XXD Exposure to other specified smoke, fire and flames, subsequent encounter; Z98.51 Tubal ligation status; Z72.89 Other problems related to lifestyle; Z97.5 Presence of (intrauterine) contraceptive device
CPT/HCPCS: 36415; 74176; 76705; 76830; 76856; 80048; 80053; 80061; 80178; 80307; 81001; 82150; 83036; 83690; 83735; 84100; 84443; 84703; 85025; 85610; 85730; 86301; 86304; 86703; 86704; 86709; 86803; 87040; 87070; 87086; 87340; 87536; 87591; 90634; 90744; 96374; 96375; 96376; J0696; J0744; J2060; J2270; J2405; J3411; J7030

== ENCOUNTER 2017-05-16 14:19 | Emergency (ER) | payer OTHER ==
[~2017-05-16] VITALS: Ht 157.5 cm; Wt 50.0 kg
[~2017-05-16 14:19] MED LIST: ALPR2TAB PO; AMPH20TA2 PO; AZIT250T6 PO; BIOT1CAP3 PO; HYDR-906 PO; LITH300T5 PO; MELA1TAB15 PO; NITR-58 PO; QUET300T13 PO
[2017-05-16 14:20] VITALS: Ht 157.5 cm; Wt 50.0 kg
[2017-05-16 14:47] LABS: BASOPHIL # 0.1 10^3/ul (0.0-0.1); BASOPHILS % 0.8 % (0.0-2.0); EOSINOPHILS # 0.3 10^3/ul (0.0-0.5); EOSINOPHILS % 3.3 % (0.0-7.0); HEMATOCRIT 42.7 % (37.0-47.0); HEMOGLOBIN 13.7 g/dl (12.0-16.0); LYMPHOCYTES # 3.4 10^3/ul (0.8-2.9); LYMPHOCYTES % 39.5 % (15.0-51.0); MEAN CORPUSCULAR HEMOGLOBIN 32.2 pg (29.0-33.0); MEAN CORPUSCULAR HGB CONC 32.1 g/dl (32.0-37.0); MEAN CORPUSCULAR VOLUME 100.2 fl (82.0-101.0); MEAN PLATELET VOLUME 9.9 fl (7.4-10.4); MONOCYTE # 0.5 10^3/ul (0.3-0.9); MONOCYTES % 6.3 % (0.0-11.0); NEUTROPHIL # 4.2 10^3/ul (1.6-7.5); NEUTROPHILS % 49.6 % (39.0-77.0); PLATELET COUNT 380 10^3/UL (140-415); RED BLOOD COUNT 4.26 10^6/ul (4.20-5.40); RED CELL DISTRIBUTION WIDTH 12.3 % (11.5-14.5); WHITE BLOOD COUNT 8.5 10^3/ul (4.8-10.8)
[2017-05-16] MEDS ORDERED: LORAZEPAM 1 MG TAB PO ONE (15:00)
[2017-05-16 15:07] LABS: ADD UMIC YES; UR ASCORBIC ACID NEGATIVE (NEGATIVE); UR BILIRUBIN (Dip) NEGATIVE (NEGATIVE); UR BLOOD (Dip) 1+ mg/dL (NEGATIVE); UR CLARITY CLEAR (CLEAR); UR COLOR YELLOW (YELLOW); UR GLUCOSE (Dip) NEGATIVE (NEGATIVE); UR KETONES (Dip) NEGATIVE (NEGATIVE); UR LEUKOCYTE ESTERASE (Dip) 2+ Leu/ul (NEGATIVE); UR NITRITE (Dip) NEGATIVE (NEGATIVE); UR RBC 4 /HPF (0-5); UR SPECIFIC GRAVITY (Dip) 1.014 (1.003-1.030); UR SQUAMOUS EPITHELIAL CELL FEW /HPF (FEW); UR TOTAL PROTEIN (Dip) NEGATIVE (NEGATIVE); UR UROBILINOGEN (Dip) NEGATIVE (NEGATIVE)
[2017-05-16 15:19] LABS: ALANINE AMINOTRANSFERASE 25 IU/L (13-69); ALBUMIN 4.5 g/dl (3.3-4.9); ALKALINE PHOSPHATASE 78 IU/L (42-121); ANION GAP 20 (8-16); ASPARTATE AMINO TRANSFERASE 20 IU/L (15-46); BLOOD UREA NITROGEN 9 mg/dl (7-20); CALCIUM 9.7 mg/dl (8.4-10.2); CARBON DIOXIDE 28 mmol/L (21-31); CHLORIDE 99 mmol/L (97-110); CREATININE 0.83 mg/dl (0.44-1.00); GLUCOSE 96 mg/dl (70-220); POTASSIUM 4.2 mmol/L (3.5-5.1); SODIUM 143 mmol/L (135-144); TOTAL PROTEIN 7.5 g/dl (6.1-8.1)
[2017-05-16 15:26] LABS: ACETAMINOPHEN < 10.0 ug/ml (10.0-30.0); ETHANOL < 10.0 mg/dl; SALICYLATE < 1.0 mg/dl (5.0-30.0)
[2017-05-16 15:31] LABS: INR 1.01; PROTIME 13.3 Sec (12.2-14.2)
[2017-05-16 15:32] LABS: PARTIAL THROMBOPLASTIN TIME 31.9 Sec (25.0-35.0)
[2017-05-16 15:50] LABS: BENZODIAZEPINES Positive (NEGATIVE)
[2017-05-16 15:51] LABS: BARBITURATES Negative (NEGATIVE); CANNABINOIDS Positive (NEGATIVE); COCAINE Negative (NEGATIVE); OPIATES Positive (NEGATIVE)
--- NOTE | 2017-05-16 16:22 | ERD ---
ER Documentation Chief Complaint Date/Time DATE: 05/16/17 TIME: 16:16 Chief Complaint psych eval HPI This is a 26-year-old female with a known history of anxiety and a recent urinary tract infection and prescribed azithromycin and Macrobid 24 hours prior to arrival and she was seen at [facility]. The patient returns to the emergency department today as she read her discharge papers and indicated that some of the adverse effects from the medications can be nightmares and confusion. She indicated that while sleeping yesterday she had severe nightmares that frightened her and she started to develop palpitations and feel very anxious. She has a history of PTSD but at this time denies any suicidal homicidal thoughts or ideations auditory tactile or visual hallucinations. ROS All systems reviewed and are negative except as per history of present illness. Medications Home Meds Active Scripts Nitrofurantoin Monohyd Macrocr* (Macrobid*) 100 Mg Capsr, 100 MG PO BID for 5 Days, CAP Prov:JULIA GUZMAN [employer] 05/15/17 Hydrocodone/Acetaminophen ([place] 5-325 Tablet) 1 Each Tablet, 1 EACH PO Q6H Y for SEVERE PAIN LEVEL 7-10, #10 TAB Prov:JULIA GUZMAN [employer] 05/15/17 Azithromycin* (Azithromycin*) 250 Mg Tablet, 250 MG PO DAILY for 7 Days, #7 TAB Prov:JULIA GUZMAN [employer] 05/15/17 Reported Medications Melatonin (Melatonin) Unknown Strength Tablet, PO HS, TAB 05/12/17 Biotin (BIOTIN) 1 Mg Capsule, PO, CAP 05/12/17 Amphet Sht-Paljqr-S-Amphet (Adderall) 20 Mg Tablet, 20 MG PO DAILY, TAB 05/12/17 Alprazolam* (Xanax*) 2 Mg Tablet, 2 MG PO DAILY Y for ANXIETY, TAB 05/12/17 Quetiapine Fumarate* (Seroquel*) 300 Mg Tablet, 300 MG PO HS, TAB 05/12/17 [place] Carbonate* ([place] Carbonate*) 300 Mg Tablet, 300 MG PO BID, TAB 05/12/17 Allergies Allergies: Coded Allergies: No Known Drug Allergies (Verified Allergy, Unknown, 05/12/17) PMhx/Soc Medical and Surgical Hx: pt denies Medical Hx, pt denies Surgical Hx History of Surgery: No Anesthesia Reaction: No Hx Neurological Disorder: No Hx Respiratory Disorders: No Hx Cardiac Disorders: No Hx Psychiatric Problems: Yes (bipolar, manic depressive, PTSD. ADHD, schizophrenia, borderline personalit) Hx Miscellaneous Medical Probl: No Hx Alcohol Use: Yes (Pint of whiskey,) Hx Substance Use: Yes (marijuana) Hx Tobacco Use: Yes (half a pack) Smoking Status: Current every day smoker Physical Exam Vitals Vital Signs Date Time Temp Pulse Resp B/P Pulse Ox O2 Delivery O2 Flow Rate FiO2 05/16/17 14:20 98.5 97 19 142/84 100 Physical Exam Constitutional:Well-developed. Well-nourished. She did feel very anxious and was speaking very rapidly HEENT:Normocephalic. Atraumatic.Pupils were equal round reactive to light. Moist mucous membranes.No tonsillar exudates. Neck: No nuchal rigidity. No lymphadenopathy. No posterior cervical spine tenderness or step-offs. Respiratory: Not using accessory muscles of respiration.Lungs were clear to auscultation bilaterally. No rhonchi. No rales. No wheezing. Cardiovascular: Regular rate regular rhythm.No murmurs. No rubs were appreciated.S1, S2 normal. Distal pulses are palpable 2+ bilaterally. GI: Abdomen was soft. Nontender. Non Distended. No pulsatile abdominal masses or bruits. No rebound. No guarding. Bowel sounds were present and normal. Muscle skeletal: Full range of motion of both the upper and lower extremities bilaterally.Normal muscle tone.No assymetrical calf tenderness or swelling. Skin: No petechia, no purpura. No lesions on the palms or the soles of the feet. No maculopapular rash. NEURO: Patient was alert, awake, orientated x3.No facial droop. Gait observed and normal with no ataxia.Speech had regular rate and rhythm. No focal neurological deficits. Patient denied any suicidal homicidal thoughts ideations. Denied any auditory tactile or visual hallucinations Result Diagram: 05/16/17 1435 05/16/17 1435 Results 24 hrs Laboratory Tests Test 05/16/17 14:35 05/16/17 14:40 White Blood Count 8.510^3/ul Red Blood Count 4.2610^6/ul Hemoglobin 13.7g/dl Hematocrit 42.7% Mean Corpuscular Volume 100.2fl Mean Corpuscular Hemoglobin 32.2pg Mean Corpuscular Hemoglobin Concent 32.1g/dl Red Cell Distribution Width 12.3% Platelet Count 84360^3/UL Mean Platelet Volume 9.9fl Neutrophils % 49.6% Lymphocytes % 39.5% Monocytes % 6.3% Eosinophils % 3.3% Basophils % 0.8% Nucleated Red Blood Cells % 0.0/100WBC Neutrophils # 4.210^3/ul Lymphocytes # 3.410^3/ul Monocytes # 0.510^3/ul Eosinophils # 0.310^3/ul Basophils # 0.110^3/ul Nucleated Red Blood Cells # 0.010^3/ul Prothrombin Time 13.3Sec Prothrombin Time Ratio 1.0 INR International Normalized Ratio 1.01 Activated Partial Thromboplast Time 31.9Sec Sodium Level 143mmol/L Potassium Level 4.2mmol/L Chloride Level 99mmol/L Carbon Dioxide Level 28mmol/L Anion Gap 20 Blood Urea Nitrogen 9mg/dl Creatinine 0.83mg/dl Glucose Level 96mg/dl Calcium Level 9.7mg/dl Total Bilirubin 0.0mg/dl Direct Bilirubin 0.00mg/dl Indirect Bilirubin 0.0mg/dl Aspartate Amino Transf (AST/SGOT) 20IU/L Alanine Aminotransferase (ALT/SGPT) 25IU/L Alkaline Phosphatase 78IU/L Total Protein 7.5g/dl Albumin 4.5g/dl Globulin 3.00g/dl Albumin/Globulin Ratio 1.50 Salicylates Level < 1.0mg/dl Acetaminophen Level < 10.0ug/ml Ethyl Alcohol Level < 10.0mg/dl Urine Color YELLOW Urine Clarity CLEAR Urine pH 7.0 Urine Specific [place] 1.014 Urine Ketones NEGATIVEmg/dL Urine Nitrite NEGATIVEmg/dL Urine Bilirubin NEGATIVEmg/dL Urine Urobilinogen NEGATIVEmg/dL Urine Leukocyte Esterase 2+[place]/ul Urine Microscopic RBC 4/HPF Urine Microscopic WBC 7/HPF Urine Squamous Epithelial Cells FEW/HPF Urine Hemoglobin 1+mg/dL Urine Glucose NEGATIVEmg/dL Urine Total Protein NEGATIVEmg/dl Urine Opiates Screen Positive Urine Barbiturates Negative Urine Amphetamines Screen Negative Urine Benzodiazepines Screen Positive Urine Cocaine Screen Negative Urine Cannabinoids Positive Current Medications Medications (Trade) Dose Ordered Sig/Sherry Route PRN Reason Start Time Stop Time Status Last Admin Dose Admin Lorazepam (Ativan) 2 mg ONCE ONCE PO 05/16/17 15:00 05/16/17 15:01 DC 05/16/17 14:56 Procedures/MDM This is a 26-year-old female with known history of anxiety who presented to the emergency department with a possibility of an adverse reaction to the antibiotics. The patient does have a urinary tract infection with no evidence of sepsis. I repeated ancillary laboratory work and there is no electrolyte abnormalities. Her urine drug screen was positive for cannabinoids. The patient received 2 mg of Ativan p.o. She stated she had significant improvement of her symptoms and felt comfortable being discharged home. She denied any suicidal or homicidal thoughts or ideations. Instructed the patient to continue to take the medication to treat the urinary tract infection as she was refusing to switch to a different type of antibiotic. The patient was discharged home in fair condition. They were instructed to return to the emergency department at any time if there was any worsening of their condition. The patient stated they would follow up with their PCP in the next 24-48 hours to initiate a suitable medication regimen under the care of their PCP as well as to allow their PCP to monitor any drug reactions. The patient was discharged home with prescriptions after they gave informed consent to the new medication. They were also fully informed by myself on the adverse effects and adverse drug interactions in order to provide adequate safeguards to prevent possible adverse reactions to medications. Departure Diagnosis: Primary Impression: Adverse effects of medication Encounter type: initial encounter Qualified Code: T88.7XXA - Adverse effects of medication, initial encounter Additional Impression: Panic attack Condition: Fair DANIEL LEVINE May 16, 2017 16:22
[2017-05-16] MEDS ORDERED: ALPR1TAB2 PO (17:22)
[2017-05-16] MEDS ORDERED: ALPRAZOLAM 1 MG TAB PO ONE (17:30)
== END 2017-05-16 18:23 | disposition home or self-care (01) ==
LOC: E/R 14:19
DX: R00.2 Palpitations (principal); R40.2252 Coma scale, best verbal response, oriented, at arrival to emergency department; T36.3X5A Adverse effect of macrolides, initial encounter; T49.3X5A Adverse effect of emollients, demulcents and protectants, initial encounter; F41.0 Panic disorder [episodic paroxysmal anxiety]; F17.210 Nicotine dependence, cigarettes, uncomplicated; R40.2142 Coma scale, eyes open, spontaneous, at arrival to emergency department; R40.2362 Coma scale, best motor response, obeys commands, at arrival to emergency department
CPT/HCPCS: 80053; 80306; 80307; 81001; 85025; 85610; 85730; 99283